=== PATIENT | male | born 1985 | race Caucasian/White ===

== ENCOUNTER 2021-07-22 16:10 | Emergency (ER) | payer OTHER, SELFPAY ==
[2021-07-22 16:17] VITALS: BP 182/112; PULSE 84; RESP 14; TEMP 37.1; O2SAT 97
== END 2021-07-22 16:31 | disposition left against medical advice (07) ==
LOC: EXPBETH 16:14
PROVIDERS: Emergency Provider Nurse Practitioner; PCP Nurse Practitioner Family
DX: Z53.21 Procedure and treatment not carried out due to patient leaving prior to being seen by health care provider (principal)
CPT/HCPCS: 99199

== ENCOUNTER 2021-11-07 21:23 | Emergency (ER) | payer OTHER, SELFPAY ==
--- NOTE | ~2021-11-07 | XR_ITS ---
CORRECTED REPORT order changed 11/15/21 [facility] – [place] EXAM: XR knee LT 3V DATE: 11/07/2021 22:39 HISTORY: LT knee pain, swelling, reddness, oozing . COMPARISON: None available. FINDINGS: Normal mineralization. No fracture or dislocation. No lytic or blastic lesion. Tricompartmental osteoarthritis, severe in the medial compartment. No erosion or periosteal change. Soft tissues within normal limits. IMPRESSION: No acute osseous finding in the left knee. Reviewed, dictated and finalized at location K. MTDD
--- NOTE | ~2021-11-07 | XR_ITS ---
EXAMINATION: XR chest 1V portable Exam Date/Time: 11/07/2021 22:20 CDT HISTORY: fever, LT lower leg swelling and reddness Comparison: None available. RESULT: Lines, tubes, and devices: None. Lungs and pleura: Clear. Cardiomediastinal silhouette: Heart size is enlarged, likely accentuated by technique, otherwise nor mal. Other: No acute osseous or upper abdominal finding. IMPRESSION: No acute cardiopulmonary process. Reviewed, dictated and finalized at location K.
--- NOTE | ~2021-11-07 | XR_ITS ---
CORRECTED REPORT order change 11/15/21 [facility] [place]: XR tibia fibula LT 2V DATE: 11/07/2021 22:40 HISTORY: LT knee/lower limb pain, swelling, reddness, oozing . COMPARISON: None available. FINDINGS: Normal mineralization. No fracture or dislocation. No lytic or blastic lesion. Knee arthritis. Mild degenerative change in the ankle. No erosion or periosteal change. Soft tissues within normal limits. IMPRESSION: No acute osseous finding in the left tibia/fibula. Reviewed, dictated and finalized at location K. MTDD
[2021-11-07 21:30] VITALS: BP 169/106; PULSE 110; RESP 18; TEMP 37.8; O2SAT 92
--- NOTE | 2021-11-07 21:39 | ECG_ITS ---
Measurements Intervals [place] Rate: 109 P: 57 ID: [id number] QRS: 18 QRSD: 104 T: 59 QT: 349 QTc: 471 Interpretive Statements SINUS TACHYCARDIA WITH SHORT ID INTERVAL BASELINE ARTIFACT- I, II, AVR BORDERLINE ECG Electronically Signed On 11-08-2021 7:05:32 CDT by Shola Neely D.O.
[2021-11-07 22:17] LABS: Hematocrit 41.4 % (40.0-54.0); Hemoglobin 13.2 g/dL (14.0-18.0); Mean Corpuscular HGB Conc 31.9 g/dL (32.0-36.0); Mean Corpuscular Hemoglobin 29.9 pg (27.0-31.0); Mean Corpuscular Volume 93.7 fL (78.0-102.0); Mean Platelet Volume 11.3 fl (8.7-11.0); Platelet Count Result 151 K/mm3 (150-420); Red Blood Count 4.42 M/mm3 (4.70-6.10); Red Cell Distribution Width 13.9 % (11.6-14.4)
[2021-11-07 22:22] LABS: White Blood Count 24.2 K/mm3 (4.8-10.8)
[2021-11-07] MEDS: ACETAMINOPHEN 325 MG TABLET 650 MG PO (22:25)
[2021-11-07] MEDS: IBUPROFEN 400 MG TABLET 800 MG PO (22:27)
--- NOTE | 2021-11-07 22:32 | ED.EXTPRO ---
HPI - Extremity Problem General Chief complaint: Extremity Problem,Nontraumatic Stated complaint: redness, leaking, hot LT knee Time Seen by Provider: 11/07/21 21:27 Source: patient, family and RN notes reviewed Mode of arrival: wheelchair Limitations: no limitations History of Present Illness Complaint: extremity pain, extremity swelling and joint swelling Onset (ago): day(s) (2) Pain Consistency: constant Location: left, lower extremity and knee Severity scale (1-10): 8 Quality: aching and constant Radiation: none Relieving factors: nothing Exacerbating factors: weight bearing and walking Associated symptoms: fever Related Data Home Medications Medication Instructions Recorded Confirmed losartan 50 mg tablet 50 tablet PO DIRECTED 11/07/21 11/07/21 Allergies Allergy/AdvReac Type Severity Reaction Status Date / Time No Known Allergies Allergy Verified 11/07/21 21:40 Review of Systems Review of Systems: All systems reviewed & are unremarkable except as noted in HPI and below Constitutional: Constitutional: Reports no additional constitutional complaints Eyes: Eyes: Reports no additional eye complaints ENT: Reports system reviewed and no additional complaints, except as documented Cardiovascular: Cardiovascular: Reports no additional cardiovascular complaints Respiratory: Respiratory: Reports no additional respiratory complaints Gastrointestinal: Gastrointestinal: Reports no additional gastrointestinal complaints Musculoskeletal: Musculoskeletal: Reports no additional musculoskeletal complaints Integumentary/Breasts: Skin/Breast: Reports system reviewed and no additional complaints, except as docu Neurologic: Reports system reviewed and no additional complaints, except as documented Psychiatric: Psychiatric: Reports no additional psychiatric complaints Endocrine: Endocrine: Reports no additional endocrine complaints Hematologic/Lymphatic: Hematologic/Lymphatic: Reports no additional hematologic/lymphatic complaints Allergic/Immunologic: Allergic/Immunologic: Reports no additional allergic/immunologic complaints [facility] Past Medical History Medical History (Updated 11/07/21 @ 23:18 by Omayra Arizmendi MD) Cellulitis of knee, left Family History Family History Mother Patient's mother is in good health Father Patient's father is in good health Sibling Patient's sister is in good health Patient's brother is in good health Other Family history of elevated blood lipids Hypertension Social History Social History Second hand tobacco smoke exposure: Yes Alcohol intake: never Exam Const: General: healthy appearing and no acute distress Nutritional Appearance: well nourished Orientation/consciousness: patient oriented x3 Limitations: no limitations HENMT: Head: normal to inspection Ears: external ears normal, TM's normal bilaterally and EAC's normal General nose exam: Normal external nose present and Normal nares present Face and sinus: normal facial exam and sinuses nontender Mouth: Yes Normal oral and palatal mucosa present and Yes moist mucous membranes Teeth and gingiva: dentition normal Throat: posterior oropharynx normal Eyes: Conjunctivae: conjunctivae normal Pupils: Equal, round and reactive pupils present EOM: EOMs intact bilaterally Neck: Neck: normal visual inspection, no lymphadenopathy and no meningeal signs Chest: Chest palpation & inspection: normal inspection of the chest Resp: Effort & Inspection: normal respiratory effort Auscultation: clear to auscultation bilaterally Cardio: Rate: regular rate Rhythm: regular rhythm GI: GI Palp: Yes Soft to palpation and No Tenderness to palpation present (GI) Auscultation: normal bowel sounds : General: Yes bladder normal to palpation and Yes no CVA tenderness Back/Spine/Pelvis: Back: no CVA
[2021-11-07 22:33] LABS: Lactic Acid Reflex 0.7 mmol/L (0.4-2.0)
[2021-11-07 22:36] LABS: Alanine Aminotransferase 46 U/L (16-63); Albumin Level 2.8 g/dL (3.4-5.0); Alkaline Phosphatase 58 U/L (46-116); Anion Gap 6 mmol/L (8-16); Aspartate Amino Transferase 30 U/L (15-37); Bilirubin,Total 0.7 mg/dL (0.00-1.00); Blood Urea Nitrogen 7 mg/dL (7-18); Calcium 8.5 mg/dL (8.5-10.1); Carbon Dioxide 26 mmol/L (21-32); Chloride 100 mmol/L (98-108); Estimated CRCL calculation 196 ml/min; Estimated Glomerular Filt Rate > 60; Glucose 94 mg/dL (70-99); Osmolality Calculated 272 mOsm/kg (285-295); Potassium 3.7 mmol/L (3.5-5.1); Sodium 132 mmol/L (136-145); Total Protein 7.5 g/dL (6.4-8.2); Troponin I 16.5 ng/L (0.00-60.4)
[2021-11-07 22:39] LABS: Band Neutrophils Percent 0 % (0-6); Basophils Percent Manual 0 % (0-1); Eosinophils Percent Manual 0 % (1-6); Lymphocytes Absolute Manual 0.72 K/mm3 (1.1-4.5); Lymphocytes Percent Manual 3 % (18-44); Monocytes Absolute Manual 0.96 K/mm3 (0.1-0.90); Monocytes Percent Manual 4 % (3-9); Neutrophils Percent Manual 93 % (46-73); Platelet Estimate Adequate (Adequate); Total Cells Counted 100
[2021-11-07] MEDS: MORPHINE SULFATE (*CRX) 2 MG/ML INJ IV PUSH (22:42)
[2021-11-07] MEDS: SODIUM CHLORIDE 0.9% IV 1,000 ML 999 ML IV CONT (22:44)
[2021-11-07] MEDS: ONDANSETRON INJ 4 MG/2 ML VIAL IV PUSH (22:48)
[2021-11-07 22:53] VITALS: BP 152/89; PULSE 103; RESP 18; O2SAT 93
[2021-11-07 23:08] VITALS: BP 163/88; PULSE 100; RESP 18; O2SAT 96
[2021-11-07 23:14] VITALS: TEMP 37.7
[2021-11-07 23:30] VITALS: BP 147/89; PULSE 102; RESP 18; TEMP 37.6; O2SAT 93
== END 2021-11-07 23:45 | disposition home or self-care (01) ==
PROVIDERS: Emergency Provider Emergency Medicine
DX: L03.116 Cellulitis of left lower limb (principal)
CPT/HCPCS: 36415; 71045; 73562; 73590; 80053; 83605; 84484; 85025; 87040; 93005; 96365; 96375; 99284; A9270; J0696; J2270; J2405; J7030

== ENCOUNTER 2021-12-08 23:46 | Emergency (ER) | payer OTHER, SELFPAY ==
[2021-12-08 23:54] VITALS: BP 150/102; PULSE 95; RESP 20; TEMP 36.4; O2SAT 95
--- NOTE | 2021-12-08 23:54 | ED.SKABFB ---
HPI - Skin/Abscess/Foreign Bdy General Chief complaint: Extremity Problem,Nontraumatic Stated complaint: PAIN Time Seen by Provider: 12/08/21 23:54 Source: patient Mode of arrival: ambulatory History of Present Illness HPI narrative: 36-year-old male, smoker with obesity, hypertension on losartan, chronic leg swelling and questionable sleep apnea was here on 11/03/2021 for left knee cellulitis for which he received cephalexin. He presents to the ER with -- left knee cellulitis which is oozing liquid/PAS -- bilateral leg swelling MD complaint: abscess/boil Onset (ago): day(s) Tetanus up to date: yes Location: LLE ( left knee) Severity: moderate Quality: aching Pain Consistency: constant Relieving factors: none Exacerbating factors: none Context: none Associated symptoms: denies other symptoms Treatments prior to arrival: none Related Data Home Medications Medication Instructions Recorded Confirmed losartan 50 mg tablet 50 tablet PO DIRECTED 11/07/21 12/08/21 Allergies Allergy/AdvReac Type Severity Reaction Status Date / Time No Known Allergies Allergy Verified 12/08/21 23:51 Review of Systems Review of Systems: All systems reviewed & are unremarkable except as noted in HPI and below Constitutional: Constitutional: Reports as per HPI and Reports no additional constitutional complaints Eyes: Eyes: Reports as per HPI and Reports no additional eye complaints ENT: Reports system reviewed and no additional complaints, except as documented and Reports as per HPI Cardiovascular: Cardiovascular: Reports as per HPI and Reports no additional cardiovascular complaints Respiratory: Respiratory: Reports as per HPI and Reports no additional respiratory complaints Gastrointestinal: Gastrointestinal: Reports as per HPI and Reports no additional gastrointestinal complaints Genitourinary: Genitourinary: Reports no additional male genitourinary complaints and Reports as per HPI Musculoskeletal: Musculoskeletal: Reports no additional musculoskeletal complaints and Reports as per HPI Integumentary/Breasts: Skin/Breast: Reports system reviewed and no additional complaints, except as docu Comments: cellulitis left knee bilateral leg has chronic venous stasis changes Neurologic: Reports system reviewed and no additional complaints, except as documented and Reports as per HPI Psychiatric: Psychiatric: Reports no additional psychiatric complaints and Reports as per HPI Endocrine: Endocrine: Reports no additional endocrine complaints and Reports as per HPI Hematologic/Lymphatic: Hematologic/Lymphatic: Reports no additional hematologic/lymphatic complaints and Reports as per HPI Allergic/Immunologic: Allergic/Immunologic: Reports no additional allergic/immunologic complaints and Reports as per [facility] Past Medical History Medical History (Updated 12/09/21 @ 00:14 by Garcia Herman MD) Cellulitis of knee, left Family History Family History Mother Patient's mother is in good health Father Patient's father is in good health Sibling Patient's sister is in good health Patient's brother is in good health Other Family history of elevated blood lipids Hypertension Social History Social History (Updated 12/08/21 @ 23:53 by Dave Butler RN) Smoking packs per day: 1 Smoking cigarettes per day: 20.0 Smoking status: Current every day smoker Tobacco type: cigarettes Second hand tobacco smoke exposure: Yes Alcohol intake: never Exam Const: General: healthy appearing and no acute distress Nutritional Appearance: well nourished and obese Orientation/consciousness: patient oriented x3 Limitations: no limitations HENMT: Head: normal to inspection Ears: external ears normal General nose exam: Normal external nose present Face and sinus: normal facial exam Mouth: Yes Normal oral and palatal mucosa present ( crowded oropharynx) Thro
[2021-12-09] MEDS: CLINDAMYCIN HCL 150 MG CAP 300 MG PO (00:28)
[2021-12-09 00:32] VITALS: BP 130/112; PULSE 90; O2SAT 96
== END 2021-12-09 00:33 | disposition home or self-care (01) ==
PROVIDERS: Emergency Provider Internal Medicine Critical Care Medicine
DX: L03.90 Cellulitis, unspecified (principal); M79.89 Other specified soft tissue disorders; I10 Essential (primary) hypertension
CPT/HCPCS: 99283; A9270

== ENCOUNTER 2022-02-06 22:12 | Emergency (ER) | payer OTHER, SELFPAY ==
[2022-02-06] VITALS (8 sets, daily range): BP systolic 149–174; BP diastolic 104–123; PULSE 100; RESP 18; TEMP 36.4; O2SAT 90–96
--- NOTE | 2022-02-06 22:17 | ED.DENTAL ---
HPI - Dental/Oral General Chief complaint: Dental/Oral Stated complaint: jaw infection Source: patient Mode of arrival: ambulatory History of Present Illness HPI Narrative: 36-year-old male with a history of obesity, JODI, hypertension, chronic leg swelling presents to the ER with a 1 day history of -- right upper jaw pain /dental pain -- swelling of the right side of the face no fever or chills MD Complaint: tooth pain Location: Tooth # ( all the molars have missing crowns. The left upper molars have swelling of the surrounding gums with pus discharge) Onset (ago): day(s) ( started 1 day ago) Duration: constant Severity: moderate Relieving factors: nothing Exacerbating factors: nothing Context: history of dental caries Associated symptoms: gum swelling Treatment prior to arrival: none Related Data Allergies Allergy/AdvReac Type Severity Reaction Status Date / Time No Known Allergies Allergy Verified 02/06/22 22:19 Review of Systems Review of Systems: All systems reviewed & are unremarkable except as noted in HPI and below Constitutional: Constitutional: Reports as per HPI and Reports no additional constitutional complaints Eyes: Eyes: Reports as per HPI and Reports no additional eye complaints Comments: swelling of right lower eyelid ENT: Reports system reviewed and no additional complaints, except as documented and Reports as per HPI Comments: extensive dental caries. Right upper molars 1 2 and 3 have missing crowns with swelling of the surrounding gums and purulent discharge coming from around the root. Swelling of the right side of the face extending to the eyes and down to the mandible Cardiovascular: Cardiovascular: Reports as per HPI and Reports no additional cardiovascular complaints Respiratory: Respiratory: Reports as per HPI and Reports no additional respiratory complaints Gastrointestinal: Gastrointestinal: Reports as per HPI and Reports no additional gastrointestinal complaints Genitourinary: Genitourinary: Reports no additional male genitourinary complaints and Reports as per HPI Musculoskeletal: Musculoskeletal: Reports no additional musculoskeletal complaints and Reports as per HPI Integumentary/Breasts: Skin/Breast: Reports system reviewed and no additional complaints, except as docu and Reports as per HPI Comments: chronic venous stasis changes both legs Neurologic: Reports system reviewed and no additional complaints, except as documented and Reports as per HPI Psychiatric: Psychiatric: Reports no additional psychiatric complaints and Reports as per HPI Endocrine: Endocrine: Reports no additional endocrine complaints and Reports as per HPI Hematologic/Lymphatic: Hematologic/Lymphatic: Reports no additional hematologic/lymphatic complaints and Reports as per HPI Allergic/Immunologic: Allergic/Immunologic: Reports no additional allergic/immunologic complaints and Reports as per HPI PMFSH Past Medical History Medical History Cellulitis of knee, left Family History Family History Mother Patient's mother is in good health Father Patient's father is in good health Sibling Patient's sister is in good health Patient's brother is in good health Other Family history of elevated blood lipids Hypertension Social History Social History Smoking packs per day: 1 Smoking cigarettes per day: 20.0 Smoking status: Current every day smoker Tobacco type: cigarettes Second hand tobacco smoke exposure: Yes Alcohol intake: never Exam Const: General: ill appearing Nutritional Appearance: well nourished and obese Orientation/consciousness: patient oriented x3 Limitations: no limitations HENMT: Head: normal to inspection Ears: external ears normal Face/Nose/Sinus: Normal external nose present Face and si
[2022-02-06] MEDS: CLINDAMYCIN 600 MG/D5W 50 ML 600 MG/50 ML PIGGYBACK 100 MG IVPB (22:43)
[2022-02-06] MEDS: levoFLOXacin 500 MG/D5W 100 ML 500 MG/100 ML BAG 100 MG IVPB (22:48)
--- NOTE | 2022-02-06 22:53 | PC.NURSE ---
Pt declines Labs and admission, ERP aware of BP trends
--- NOTE | 2022-02-27 14:51 | PC.NURSE ---
LATE ENTRY This note is being entered to document information to the patient's record. The following information was omitted on [02/06/22], by [Dave Butler]. Levaquin 500mg IV completed at 2340.
== END 2022-02-06 23:49 | disposition home or self-care (01) ==
PROVIDERS: Emergency Provider Internal Medicine Critical Care Medicine; PCP Family Medicine
DX: K04.7 Periapical abscess without sinus (principal); K05.10 Chronic gingivitis, plaque induced; M79.89 Other specified soft tissue disorders
CPT/HCPCS: 96374; 96375; 99285; J1956

== ENCOUNTER 2022-06-19 00:40 | Emergency (ER) | payer OTHER, SELFPAY ==
--- NOTE | ~2022-06-19 | CT_ITS ---
EXAMINATION: CT facial bones wo con DATE: 06/19/2022 01:44 INDICATION: Right facial swelling. Right upper tooth pain. TECHNIQUE: Computed tomography (CT) of the facial bones and maxillofacial region was performed withou t intravenous contrast. Automated exposure control and iterative reconstruction technique were employ ed. The dose-length product was 466.99 mGy-cm. COMPARISON: None. FINDINGS: There is right cheek and right periorbital soft tissue swelling. The orbits are normal. The re is leftward deviation of the nasal septum. There is mucosal thickening in the paranasal sinuses. T he mastoid air cells are normal. There is extensive dental disease. Teeth 1-4 are broken with periapi simone lucencies and breech of the buccal cortex of the alveolar process at tooth 3 with adjacent 10 mm phlegmon versus abscess. There are carious lesions of teeth 5, 7, 10, 11, and 12. Teeth 13-15 are bro tess with periapical lucencies. The 2 remaining left mandibular molars are broken with periapical luce ncies. Tooth 20 is broken with periapical lucencies. There are carious lesions of teeth 21, 28, and 2 9. The residual right mandibular molar is broken with periapical lucencies. IMPRESSION: 1. Extensive dental disease with phlegmon versus abscess adjacent to tooth #3. Reviewed, dictated and finalized at location A. DATA ARCHITECT
[2022-06-19 00:44] VITALS: BP 160/114; PULSE 98; RESP 18; TEMP 36.4; O2SAT 91
--- NOTE | 2022-06-19 00:46 | ED.DENTAL ---
HPI - Dental/Oral General Chief complaint: Unspecified Stated complaint: Allergic Reaction History of Present Illness HPI Narrative: Pt presents with pain in upper right molars and swelling to face since yesteerday that has progressed to the point where his right eye is nearly swollen shut. Pt had similar episode in past and was put on antibiotics and sent home and it resolved. Pt denies fever or chills. Related Data Allergies Allergy/AdvReac Type Severity Reaction Status Date / Time No Known Allergies Allergy Verified 02/06/22 22:19 Review of Systems Review of Systems: All systems reviewed & are unremarkable except as noted in HPI and below PMFSH Past Medical History Medical History Cellulitis of knee, left Family History Family History Mother Patient's mother is in good health Father Patient's father is in good health Sibling Patient's sister is in good health Patient's brother is in good health Other Family history of elevated blood lipids Hypertension Social History Social History Smoking packs per day: 1 Smoking cigarettes per day: 20.0 Smoking status: Current every day smoker Tobacco type: cigarettes Second hand tobacco smoke exposure: Yes Alcohol intake: never Exam Const: General: healthy appearing and no acute distress Nutritional Appearance: obese Orientation/consciousness: patient oriented x3 Limitations: no limitations HENMT: Face and sinus: sinus tenderness (prominent facial swelling and firmness over right cheek with swelling aroun) Teeth and gingiva: abnormal tooth and associated gingiva (dental carries without definite abscess) Neck: Neck: normal visual inspection and no lymphadenopathy Resp: Effort & Inspection: normal respiratory effort Cardio: Rate: regular rate Rhythm: regular rhythm GI: GI Palp: Yes Soft to palpation Skin: General skin exam: normal color Neuro: General: patient oriented x3, moves all extremities and no focal motor deficits Cranial nerves: Yes Nystagmus not present Speech: normal speech Extrem: General: normal to inspection and no clubbing, cyanosis or edema Psych: Mental Status: mental status grossly normal Affect: normal affect Attitude: cooperative Course Vital Signs Vital signs: Vital Signs Temperature 97.6 F 06/19/22 00:44 Pulse Rate 98 06/19/22 00:44 Respiratory Rate 18 06/19/22 00:44 Blood Pressure 160/114 H 06/19/22 00:44 Pulse Oximetry 91 06/19/22 00:44 Oxygen Delivery Room Air 06/19/22 00:44 Temperature 97.6 F 06/19/22 00:44 Pulse Rate 98 06/19/22 00:44 Respiratory Rate 18 06/19/22 00:44 Blood Pressure 160/114 H 06/19/22 00:44 Pulse Oximetry 91 06/19/22 00:44 Oxygen Delivery Room Air 06/19/22 00:44 MDM - Dental/Oral MDM Narrative Medical decision making narrative: cbc, cmp, lactate nl, elevated crp, ct shows numerous periapical abscesses see report. will send home on oral augmentin after vanc in ER and pt needs to see dentist or oral surgeon in follow up Lab Data 06/19/22 01:07 06/19/22 01:07 Labs: Lab Results 06/19/22 06/19/22 06/19/22 Range/Units 01:07 01:07 01:07 WBC 10.8 (4.8-10.8) K/mm3 RBC 4.49 L (4.70-6.10) M/mm3 Hgb 13.5 L (14.0-18.0) g/dL Hct 41.8 (40.0-54.0) % MCV 93.1 (78.0-102.0) fL MCH 30.1 (27.0-31.0) pg MCHC 32.3 (32.0-36.0) g/dL RDW 13.4 (11.6-14.4) % Plt Count 189 (150-420) K/mm3 MPV 10.7 (8.7-11.0) fl Immature Gran % (Auto) 0.3 H (0.0-0.0) % Neut % (Auto) 71.4 H (50.0-70.0) % Lymph % (Auto) 19.6 (18.0-42.0) % [place] % (Auto) 7.1 (2.0-11.0) % Eos % (Auto) 1.0 (1.0-6.0) % Baso % (Auto) 0.6 (0.0-1.0) % Lymph # (Auto) 2.13 (1.10-4.50) K/mm3 [place] # (Auto) 0.77 (0.10-
[2022-06-19 01:10] LABS: Basophils Absolute Auto 0.06 K/mm3 (0.00-0.10); Basophils Percent Auto 0.6 % (0.0-1.0); Eosinophils Absolute Auto 0.11 K/mm3 (0.02-0.50); Hematocrit 41.8 % (40.0-54.0); Hemoglobin 13.5 g/dL (14.0-18.0); Immature Granulocyte Absolute 0.03 K/mm3 (0.00-0.00); Immature Granulocyte Percent A 0.3 % (0.0-0.0); Lymphocytes Absolute Auto 2.13 K/mm3 (1.10-4.50); Lymphocytes Percent Auto 19.6 % (18.0-42.0); Mean Corpuscular HGB Conc 32.3 g/dL (32.0-36.0); Mean Corpuscular Hemoglobin 30.1 pg (27.0-31.0); Mean Corpuscular Volume 93.1 fL (78.0-102.0); Mean Platelet Volume 10.7 fl (8.7-11.0); Monocytes Absolute Auto 0.77 K/mm3 (0.10-0.90); Monocytes Percent Auto 7.1 % (2.0-11.0); Neutrophils Absolute Auto 7.7 K/mm3 (1.7-7.2); Neutrophils Percent Auto 71.4 % (50.0-70.0); Platelet Count Result 189 K/mm3 (150-420); Red Blood Count 4.49 M/mm3 (4.70-6.10); Red Cell Distribution Width 13.4 % (11.6-14.4); White Blood Count 10.8 K/mm3 (4.8-10.8)
[2022-06-19 01:25] LABS: INR 1.1; Partial Thromboplastin Time 27.1 SEC (23.90-30.70); Prothrombin Time 11.5 Seconds (9.50-12.10)
[2022-06-19 01:40] LABS: Alanine Aminotransferase 34 U/L (16-63); Albumin Level 3.1 g/dL (3.4-5.0); Alkaline Phosphatase 50 U/L (46-116); Anion Gap 3 mmol/L (8-16); Aspartate Amino Transferase 29 U/L (15-37); Bilirubin,Total 0.5 mg/dL (0.00-1.00); Blood Urea Nitrogen 11 mg/dL (7-18); Calcium 8.4 mg/dL (8.5-10.1); Carbon Dioxide 33 mmol/L (21-32); Chloride 100 mmol/L (98-108); Estimated CRCL calculation 188 ml/min; Estimated Glomerular Filt Rate > 60; Glucose 126 mg/dL (70-99); Osmolality Calculated 283 mOsm/kg (285-295); Potassium 3.6 mmol/L (3.5-5.1); Sodium 136 mmol/L (136-145); Total Protein 7.8 g/dL (6.4-8.2)
[2022-06-19 02:35] VITALS: BP 155/86; PULSE 91; RESP 20; TEMP 36.9; O2SAT 99
[2022-06-19] MEDS: HYDROcodone/acetaminophen (*CRX) 5-325 MG TABLET 1 TAB PO (02:45)
--- NOTE | 2022-06-25 13:07 | PC.NURSE ---
FINAL BLOOD CULTURE X2: NO GROWTH AFTER 5 DAYS. NO ACTION NEEDED
== END 2022-06-19 02:45 | disposition home or self-care (01) ==
PROVIDERS: Emergency Provider Emergency Medicine; PCP Family Medicine
DX: K04.7 Periapical abscess without sinus (principal); F17.210 Nicotine dependence, cigarettes, uncomplicated
CPT/HCPCS: 36415; 70486; 80053; 83605; 85025; 85610; 85730; 86140; 87040; 96365; 96366; 99284; A9270; J3370

== ENCOUNTER 2022-09-05 17:57 | Emergency (ER) | payer OTHER, SELFPAY ==
[2022-09-05] VITALS (8 sets, daily range): BP systolic 150–154; BP diastolic 90–108; PULSE 86–90; RESP 16–20; TEMP 37–37.2; O2SAT 90–94
--- NOTE | ~2022-09-05 | XR_ITS ---
EXAMINATION: XR chest 1V portable Exam Date/Time: 09/05/2022 18:40 CDT HISTORY: Dyspnea since last night. No lung or cardiac hx. Comparison: 11/07/2021. RESULT: Lines, tubes, and devices: None. Lungs and pleura: Exam limited by quantum mottle, habitus, and linear artifacts. Diffuse reticular o pacities, indistinct vessels and cuffing. No focal consolidation. Cardiomediastinal silhouette: Stable. Other: No acute osseous or upper abdominal finding. IMPRESSION: Mild interstitial edema versus technical artifact. Reviewed, dictated and finalized at location K.
[2022-09-05] MEDS: IPRATROPIUM 0.5 MG/ALBUTEROL SULFATE 2.5 MG AMPUL.NEB 3 ML INHALATION (18:29)
[2022-09-05 18:43] LABS: Basophils Absolute Auto 0.05 K/mm3 (0.00-0.10); Basophils Percent Auto 0.5 % (0.0-1.0); Eosinophils Absolute Auto 0.17 K/mm3 (0.02-0.50); Eosinophils Percent Auto 1.8 % (1.0-6.0); Hematocrit 40.5 % (40.0-54.0); Immature Granulocyte Absolute 0.04 K/mm3 (0.00-0.00); Immature Granulocyte Percent A 0.4 % (0.0-0.0); Lymphocytes Percent Auto 19.7 % (18.0-42.0); Mean Corpuscular HGB Conc 32.1 g/dL (32.0-36.0); Mean Corpuscular Hemoglobin 30.2 pg (27.0-31.0); Mean Platelet Volume 9.9 fl (8.7-11.0); Monocytes Absolute Auto 0.52 K/mm3 (0.10-0.90); Monocytes Percent Auto 5.4 % (2.0-11.0); Neutrophils Percent Auto 72.2 % (50.0-70.0); Platelet Count Result 245 K/mm3 (150-420); Red Blood Count 4.31 M/mm3 (4.70-6.10); Red Cell Distribution Width 13.2 % (11.6-14.4); White Blood Count 9.7 K/mm3 (4.8-10.8)
[2022-09-05 19:05] LABS: Alanine Aminotransferase 40 U/L (16-63); Albumin Level 2.9 g/dL (3.4-5.0); Alkaline Phosphatase 51 U/L (46-116); Anion Gap 4 mmol/L (8-16); Aspartate Amino Transferase 39 U/L (15-37); Bilirubin,Total 0.3 mg/dL (0.00-1.00); Blood Urea Nitrogen 12 mg/dL (7-18); Calcium 8.7 mg/dL (8.5-10.1); Carbon Dioxide 36 mmol/L (21-32); Chloride 102 mmol/L (98-108); Estimated Glomerular Filt Rate > 60; Glucose 131 mg/dL (70-99); NT Pro B Type Natriuretic Pept 202 pg/mL (0-125); Osmolality Calculated 295 mOsm/kg (285-295); Potassium 3.8 mmol/L (3.5-5.1); Sodium 142 mmol/L (136-145); Total Protein 8.1 g/dL (6.4-8.2)
[2022-09-05] MEDS: methylPREDNISolone ACETATE 40 MG/ML VIAL 80 MG IM (19:08)
--- NOTE | 2022-09-05 19:23 | ED.SOB ---
HPI - SOB/Dyspnea General Chief Complaint: Shortness of Breath/Dyspnea Stated Complaint: sob Time Seen by Provider: 09/05/22 18:01 Source: patient and family Mode of arrival: ambulatory Limitations: no limitations History of Present Illness HPI Narrative: this is a 37-year-old male that presents with cough and congestion with shortness of breath that started earlier today, cough is productive of yellow sputum with no chest pain no abdominal pain does have chronic venous stasis edema in his lower extremities with no significant past medical history, the patient is a smoker, no fever chills no nausea vomiting. MD elicited complaint: shortness of breath and cough Onset (ago): hour(s) Timing: constant Severity: moderate Related Data Allergies Allergy/AdvReac Type Severity Reaction Status Date / Time No Known Allergies Allergy Verified 09/05/22 18:07 Review of Systems Review of Systems: All systems reviewed & are unremarkable except as noted in HPI and below PMFSH Past Medical History Medical History Cellulitis of knee, left Family History Family History Mother Patient's mother is in good health Father Patient's father is in good health Sibling Patient's sister is in good health Patient's brother is in good health Other Family history of elevated blood lipids Hypertension Social History Social History Smoking packs per day: 1 Smoking cigarettes per day: 20.0 Smoking status: Current every day smoker Tobacco type: cigarettes Second hand tobacco smoke exposure: Yes Alcohol intake: never Exam Const: General: healthy appearing and no acute distress Nutritional Appearance: well nourished Orientation/consciousness: patient oriented x3 Limitations: no limitations HENMT: Head: normal to inspection Face and sinus: normal facial exam Mouth: Yes Normal oral and palatal mucosa present Eyes: Conjunctivae: conjunctivae normal Pupils: Equal, round and reactive pupils present EOM: EOMs intact bilaterally Direct Ophthalmoscopy: no photophobia Neck: Neck: normal visual inspection Chest: Chest palpation & inspection: normal inspection of the chest Resp: Effort & Inspection: normal respiratory effort Auscultation: rhonchi and wheezes Cardio: Rate: regular rate Rhythm: regular rhythm GI: GI Palp: Yes Soft to palpation Auscultation: normal bowel sounds : General: Yes bladder normal to palpation Urinary Catheter: Urinary Catheter: patent and draining Skin: General skin exam: normal color Rashes: no rashes Neuro: General: patient oriented x3 and moves all extremities Cranial nerves: Yes Nystagmus not present Extrem: General: normal to inspection Psych: Mental Status: mental status grossly normal Affect: normal affect Course Course Emergency Course: Labs and x-ray reviewed with patient and family patient did receive a DuoNeb and a dose of Depo-Medrol symptoms have improved x-ray reviewed and shows no opacities but is consistent with bronchitis. Vital Signs Vital signs: Vital Signs Temperature 37.0 C 09/05/22 18:04 Pulse Rate 89 09/05/22 18:04 Respiratory Rate 16 09/05/22 18:04 Blood Pressure 150/108 H 09/05/22 18:04 Pulse Oximetry 91 09/05/22 18:04 Oxygen Delivery Room Air 09/05/22 18:04 Temperature 37.0 C 09/05/22 18:04 Pulse Rate 90 09/05/22 18:50 Respiratory Rate 18 09/05/22 18:50 Blood Pressure 150/108 H 09/05/22 18:04 Pulse Oximetry 94 09/05/22 18:50 Oxygen Delivery Room Air 09/05/22 18:12 Oxygen Flow Rate 1 09/05/22 18:50 MDM - SOB/Dyspnea Lab Data 09/05/22 18:40 09/05/22 18:40 Labs: Lab Results 09/05/22 09/05/22 Range/Units 18:24 18:40 WBC 9.7 (4.8-10.8) K/mm3 RBC 4.31 L (4.70-6.10) M/mm3 Hgb 13.0 L (14
[2022-09-05 19:53] LABS: Influenza A QL RT-PCR Negative (Negative); Influenza B QL RT-PCR Negative (Negative); SARS-CoV-2 RNA PCR Negative (Negative)
[2022-09-05 19:54] LABS: RSV RNA, RT-PCR Negative (Negative)
[2022-09-05] MEDS: AMOXICILLIN/CLAVULANATE K 875-125 MG TAB 1 TABLET PO (20:06)
== END 2022-09-05 20:15 | disposition home or self-care (01) ==
PROVIDERS: Emergency Provider Emergency Medicine; PCP Family Medicine
DX: J06.9 Acute upper respiratory infection, unspecified (principal); F17.210 Nicotine dependence, cigarettes, uncomplicated; Z20.822 Contact with and (suspected) exposure to COVID-19
CPT/HCPCS: 36415; 71045; 80053; 83880; 85025; 87637; 94640; 96372; 99283; A9270; J1030

== ENCOUNTER 2022-11-08 00:46 | Emergency (ER) | payer OTHER, SELFPAY ==
--- NOTE | 2022-11-08 00:53 | ED.WOUNDLAC ---
HPI - Wound/Laceration General Chief Complaint: Wound/Laceration Stated Complaint: wound on left lower leg Time Seen by Provider: 11/08/22 00:52 Source: patient Mode of arrival: ambulatory Limitations: no limitations History of Present Illness HPI narrative: this is a 37-year-old morbidly obese gentleman that presents with elevated blood pressure and edema and weeping of his bilateral lower extremities with erythema which there is no warmth or tenderness does have some clear drainage and weeping with no shortness of breath no chest pain no abdominal pain no fever chills. Patient states that he has no history of diabetes, has a history of hypertension but has not been taking his blood pressure medication. Onset (ago): week(s) Related Data Allergies Allergy/AdvReac Type Severity Reaction Status Date / Time No Known Allergies Allergy Verified 09/05/22 18:07 Review of Systems Review of Systems: All systems reviewed & are unremarkable except as noted in HPI and below PMFSH Past Medical History Medical History Cellulitis of knee, left Family History Family History Mother Patient's mother is in good health Father Patient's father is in good health Sibling Patient's sister is in good health Patient's brother is in good health Other Family history of elevated blood lipids Hypertension Social History Social History Smoking packs per day: 1 Smoking cigarettes per day: 20.0 Smoking status: Current every day smoker Tobacco type: cigarettes Second hand tobacco smoke exposure: Yes Alcohol intake: never Exam Const: General: healthy appearing Nutritional Appearance: well nourished Orientation/consciousness: patient oriented x3 Limitations: no limitations HENMT: Head: normal to inspection Eyes: Conjunctivae: conjunctivae normal Neck: Neck: normal visual inspection and no lymphadenopathy Chest: Chest palpation & inspection: normal inspection of the chest Resp: Effort & Inspection: normal respiratory effort Auscultation: clear to auscultation bilaterally Cardio: Rate: regular rate Rhythm: regular rhythm GI: GI Palp: Yes Soft to palpation Skin: Wounds: wounds noted Other: Lower extremity with erythema and weeping through this skin consistent with chronic venous stasis secondary to peripheral edema Neuro: General: patient oriented x3 Cranial nerves: Yes Nystagmus not present Extrem: General: normal to inspection Psych: Mental Status: mental status grossly normal Affect: normal affect Course Course Emergency Course: patient's blood pressure is elevated and having cracks in the skin with weeping is low bilateral lower extremities will start an antibiotic 1g ceftriaxone and sent to the patient's pharmacy Lasix along with blood pressure Medicationand antibiotic. Critical Care Time Critical Care Time Critical Care Time: No Discharge Plan Discharge Clinical Impression: Essential hypertension, Cellulitis, Edema, peripheral Patient Disposition: Home, Self-Care Condition: Stable Instructions: Antibiotic Form, Cellulitis (ED), Leg Edema (ED), Hypertension (ED) Additional Instructions: advised to take medicine as prescribed and follow with primary for further evaluation treatment. Prescriptions: New losartan 50 mg tablet 50 mg PO DAILY Qty: 20 0RF amoxicillin-pot clavulanate [Augmentin] 500-125 mg tablet 1 tablet PO TID 10 Days Qty: 30 0RF furosemide [Lasix] 40 mg tablet 40 mg PO DAILY Qty: 7 0RF No Action amoxicillin-pot clavulanate [Augmentin] 500-125 mg tablet 1 tablet PO TID Qty: 20 0RF prednisone 20 mg tablet 20 mg PO DAILY Qty: 5 0RF ProAir RespiClick 90 mcg/actuation aerosol powdr breath activated 2 inh inhalation QID PRN (Reason: shortness of breath) Qty:
[2022-11-08 00:55] VITALS: BP 169/106; PULSE 100; RESP 20; TEMP 36.9; O2SAT 92
[2022-11-08] MEDS: cefTRIAXone 1 GM, LIDOCAINE HCL 1% LOCAL INJ 2.1 ML IM (01:13)
[2022-11-08 01:22] VITALS: BP 165/104; PULSE 89; RESP 20; TEMP 36.6; O2SAT 91
== END 2022-11-08 01:26 | disposition home or self-care (01) ==
LOC: CHSED 01:10
PROVIDERS: Emergency Provider Emergency Medicine; PCP Family Medicine
DX: I10 Essential (primary) hypertension (principal); R60.0 Localized edema; F17.210 Nicotine dependence, cigarettes, uncomplicated
CPT/HCPCS: 96372; 99283; J0696

== ENCOUNTER 2023-01-13 00:36 | Emergency (ER) | payer OTHER, SELFPAY ==
[2023-01-13 00:42] VITALS: BP 180/110; PULSE 90; RESP 20; TEMP 36.2; O2SAT 95
--- NOTE | 2023-01-13 00:57 | ED.GENADULT ---
HPI - General Adult General Chief complaint: Dental/Oral Stated complaint: tooth pain Time Seen by Provider: 01/13/23 00:51 Source: patient and family Mode of arrival: ambulatory Limitations: no limitations History of Present Illness HPI narrative: Complaint is toothache last 5 days with swelling of his left side of his jaw and it is worse today. Rates his pain as a 9/10. He has been on clindamycin for the last 3 days that he have some left over from an old prescription from about a month ago. Otherwise denies any fever cough shortness of breath difficulty breathing rash or itching lumps or bumps. He has chronic swelling it and venous insufficiency of his lower extremities is supposed to be wearing compression stockings which she has not done for several months. Denies any dizziness or lightheadedness problems eating or drinking voiding or stooling bleeding or bruising. Denies any problems walking talking seeing or hearing or any other complaints. Related Data Allergies Allergy/AdvReac Type Severity Reaction Status Date / Time No Known Allergies Allergy Verified 09/05/22 18:07 Review of Systems Review of Systems: All systems reviewed & are unremarkable except as noted in HPI and below PMFSH Past Medical History Medical History Cellulitis of knee, left Family History Family History Mother Patient's mother is in good health Father Patient's father is in good health Sibling Patient's sister is in good health Patient's brother is in good health Other Family history of elevated blood lipids Hypertension Social History Social History Smoking packs per day: 1 Smoking cigarettes per day: 20.0 Smoking status: Current every day smoker Tobacco type: cigarettes Second hand tobacco smoke exposure: Yes Alcohol intake: never Exam Narrative: Morbidly obese white male appears no apparent distress he has mild swelling of his left jaw with multiple missing teeth the rest of his teeth are all rotten down to the gums with broken teeth. Neck supple no lymphadenopathy lungs are clear heart is regular rate rhythm without murmurs gallops or rubs. Abdomen is morbidly obese soft nontender. Extremities Conrado swelling of his lower extremities with venous stasis color changes nontender. Neurologically is alert and oriented x4 motor and sensory grossly intact. Course Vital Signs Vital signs: Vital Signs Temperature 36.2 C L 01/13/23 00:42 Pulse Rate 90 01/13/23 00:42 Respiratory Rate 20 01/13/23 00:42 Blood Pressure 180/110 H 01/13/23 00:42 Pulse Oximetry 95 01/13/23 00:42 Oxygen Delivery Room Air 01/13/23 00:42 Temperature 36.2 C L 01/13/23 00:42 Pulse Rate 90 01/13/23 00:42 Respiratory Rate 20 01/13/23 00:42 Blood Pressure 180/110 H 01/13/23 00:42 Pulse Oximetry 95 01/13/23 00:42 Oxygen Delivery Room Air 01/13/23 00:42 Medical Decision Making MDM Narrative Medical decision making narrative: Patient Patient is placed in room 2 with his history and physical were performed. He was given Rocephin 1 g IM and Toradol 60 mg IM. Independent Historian: ? Differential Dx includes but not limited to: dental abscess pharyngitis Medications were Reviewed:? home meds reviewed? Medications treatments given: as above Independently Interpreted by me:? External Source Review:?? Medical conditions/social Situation Impacting Patients Care:?? Shared decision Making:? evaluation was discussed with patient and his all questions were asked and answered and they agreed on a plan. Discussed with ? Clinical impression:? ? Dental abscess ? Patient disposition: ? discharge home ? Condition at discharge: stable Vital Signs Vital Signs: Vital Signs Temperature 36.2 C L
[2023-01-13] MEDS: KETOROLAC (*BKC) 60 MG/2 ML VIAL IM (01:02)
[2023-01-13] MEDS: cefTRIAXone 1 GM, LIDOCAINE HCL 1% LOCAL INJ 2.1 ML IM (01:03)
[2023-01-13 01:18] VITALS: BP 184/120; PULSE 80; RESP 20; O2SAT 96
[2023-01-13] MEDS: cloNIDine HCL 0.2 MG TABLET PO (01:20)
[2023-01-13 01:43] VITALS: BP 167/100; PULSE 91; RESP 18; TEMP 36.6; O2SAT 98
== END 2023-01-13 01:49 | disposition home or self-care (01) ==
PROVIDERS: Emergency Provider Emergency Medicine; PCP Family Medicine
DX: K04.7 Periapical abscess without sinus (principal); F17.210 Nicotine dependence, cigarettes, uncomplicated
CPT/HCPCS: 96372; 99284; A9270; J0696; J1885

== ENCOUNTER 2023-05-19 13:04 | Emergency (ER) | payer OTHER, SELFPAY ==
[2023-05-19] VITALS (10 sets, daily range): BP systolic 165–211; BP diastolic 107–130; PULSE 67–97; RESP 14–27; TEMP 36.6; O2SAT 96–100
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
--- NOTE | 2023-05-19 13:24 | PC.NURSE ---
EMS reports pt ambulatory on scene
--- NOTE | 2023-05-19 14:22 | ECG_ITS ---
Measurements Intervals [place] Rate: 69 P: 29 ND: 137 QRS: 29 QRSD: 105 T: 70 QT: 424 QTc: 456 Interpretive Statements SINUS RHYTHM BASELINE ARTIFACT- I, III, AVR, AVL, AVF NORMAL ECG COMPARED TO ECG 11/07/2021 21:57:33 SINUS RHYTHM NOW PRESENT Electronically Signed On 05-19-2023 14:44:01 [employer] by Shola Neely D.O.
--- NOTE | 2023-05-19 14:44 | PC.NURSE ---
pt to ED without c-collar, c-coller applied once in room and currently intact
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
[2023-05-19 15:23] LABS: Basophils Percent Auto 0.4 % (0.2-1.2); Eosinophils Absolute Auto 0.1 K/mm3 (0-0.3); Eosinophils Percent Auto 0.8 % (0-4.4); Hematocrit 44.4 % (42.0-52.0); Hemoglobin 13.7 g/dL (14.0-18.0); Immature Granulocyte Absolute 0.08 K/mm3 (0.00-0.031); Immature Granulocyte Percent A 0.8 % (0-0.5); Lymphocytes Absolute Auto 1.12 K/mm3 (0.9-3.2); Lymphocytes Percent Auto 11.3 % (18.3-44.2); Mean Corpuscular HGB Conc 30.9 g/dl (32-36); Mean Corpuscular Volume 93.9 fl (80-100); Mean Platelet Volume 10.7 fl (7.4-10.4); Monocytes Absolute Auto 0.5 K/mm3 (0.1-0.6); Monocytes Percent Auto 4.7 % (2.6-8.5); Neutrophils Absolute Auto 8.1 K/mm3 (1.3-6.7); Platelet Count Result 185 k/mm3 (150-375); Red Blood Count 4.73 M/mm3 (4.6-6.20); Red Cell Distribution Width 13.2 % (11.5-14.5); White Blood Count 9.9 K/mm3 (4.5-10.0)
[2023-05-19 15:35] LABS: Prothrombin Time 13.9 Seconds (11.1-14.7)
[2023-05-19 15:37] LABS: Alanine Aminotransferase 37 U/L (6-50); Albumin Level 4.1 g/dL (3.5-5.1); Alkaline Phosphatase 60 U/L (38-126); Anion Gap 2 mmol/L (8-16); Aspartate Amino Transferase 50 U/L (17-59); Bilirubin,Total 0.8 mg/dL (0.2-1.3); Blood Urea Nitrogen 17 mg/dL (9-20); Calcium 9.1 mg/dL (8.4-10.2); Carbon Dioxide 36 mmol/L (22-30); Chloride 98 mmol/L (98-107); Estimated CRCL calculation 230 ml/min; Estimated Glomerular Filt Rate > 60; Glucose 100 mg/dL (65-110); Lipase 43 U/L (23-300); Partial Thromboplastin Time 28.2 SECONDS (22.3-36.8); Potassium 4.1 mmol/L (3.4-5.0); Sodium 136 mmol/L (137-145)
[2023-05-19 16:27] LABS: Appearance Urine Clear (Clear); Bacteria Urine None Seen /hpf; Bilirubin Urine Negative (Negative); Blood Urine Negative (Negative); Color Urine Yellow (Yellow); Glucose Urine UA Negative (Negative); Ketones Urine Negative (Negative); Leukocyte Esterase Ur Negative LEU/UL (Negative); Nitrate Urine Negative (Negative); Non Pathogenic Casts 0-2; Protein Urine Trace mg/dL (Negative); RBC Urine 0-2 /hpf (0-2); Specific Grav Ur 1.021 (1.001-1.035); Squamous Epithelial Cell Urine None seen /hpf (Few); Urobilinogen Urine 0.2 mg/dL (<2.0); WBC Urine 0-5 /hpf; pH Urine 7.5 (5.0-9.0)
[2023-05-19 16:37] LABS: Add Urine Microscopic? YES
== END 2023-05-19 17:24 | disposition home or self-care (01) ==
PROVIDERS: Emergency Provider Emergency Medicine; PCP Family Medicine
DX: S22.43XA Multiple fractures of ribs, bilateral, initial encounter for closed fracture (principal); F17.210 Nicotine dependence, cigarettes, uncomplicated; V49.40XA Driver injured in collision with unspecified motor vehicles in traffic accident, initial encounter
CPT/HCPCS: 36415; 70450; 70486; 71275; 72125; 74174; 80053; 81001; 83605; 83690; 85025; 85610; 85730; 93005; 99284; L0140; Q9967

== ENCOUNTER 2023-05-24 01:09 | Emergency (ER) | payer OTHER, SELFPAY ==
[2023-05-24 01:09] VITALS: BP 219/132; PULSE 83; RESP 20; TEMP 37.1; O2SAT 94
--- NOTE | 2023-05-24 01:16 | ECG_ITS ---
Measurements Intervals [place] Rate: 76 P: 39 TX: 141 QRS: 16 QRSD: 102 T: 48 QT: 410 QTc: 463 Interpretive Statements SINUS RHYTHM WITH SINUS ARRHYTHMIA VOLTAGE CRITERIA FOR LVH BORDERLINE ST-T WAVE ABNORMALITY- INF/LAT LEADS BASELINE ARTIFACT- I, II, III, AVL, AVF, V1-V2, V4-V6 BORDERLINE ECG COMPARED TO ECG 05/19/2023 14:27:28 [address] NOW PRESENT ST-T WAVE ABNORMALITY NOW PRESENT Electronically Signed On 05-24-2023 8:33:04 [employer] by Shola Neely D.O.
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
[2023-05-24] MEDS: ONDANSETRON HCL ODT 4 MG TABLET PO (02:01)
[2023-05-24] MEDS: HYDROmorphone HCL INJ (*CRX) 2 MG/ML VIAL 1 MG IM (02:02)
[2023-05-24 02:07] LABS: Basophils Absolute Auto 0.03 K/mm3 (0.00-0.10); Basophils Percent Auto 0.3 % (0.0-1.0); Eosinophils Absolute Auto 0.18 K/mm3 (0.02-0.50); Eosinophils Percent Auto 1.8 % (1.0-6.0); Hematocrit 43.5 % (40.0-54.0); Hemoglobin 13.5 g/dL (14.0-18.0); Immature Granulocyte Absolute 0.03 K/mm3 (0.00-0.00); Immature Granulocyte Percent A 0.3 % (0.0-0.0); Lymphocytes Absolute Auto 1.56 K/mm3 (1.10-4.50); Lymphocytes Percent Auto 15.6 % (18.0-42.0); Mean Corpuscular Hemoglobin 28.8 pg (27.0-31.0); Mean Corpuscular Volume 92.9 fL (78.0-102.0); Mean Platelet Volume 10.9 fl (8.7-11.0); Monocytes Absolute Auto 0.65 K/mm3 (0.10-0.90); Monocytes Percent Auto 6.5 % (2.0-11.0); Neutrophils Absolute Auto 7.5 K/mm3 (1.7-7.2); Neutrophils Percent Auto 75.5 % (50.0-70.0); Platelet Count Result 178 K/mm3 (150-420); Red Blood Count 4.68 M/mm3 (4.70-6.10); Red Cell Distribution Width 13.3 % (11.6-14.4)
--- NOTE | 2023-05-24 02:08 | PC.NURSE ---
Multiple attempts made at IV insert s success, ERP Dr Julian notified, meds changed to IM injection. Explained need to get IV access for CT c contrast. Pt given water to drink because he states he hasn't had much water to drink in past 2-3 days due to pain and not feeling well.
[2023-05-24 02:24] LABS: Alanine Aminotransferase 33 U/L (16-63); Albumin Level 3.4 g/dL (3.4-5.0); Alkaline Phosphatase 59 U/L (46-116); Anion Gap 4 mmol/L (8-16); Aspartate Amino Transferase 24 U/L (15-37); Bilirubin,Total 0.7 mg/dL (0.00-1.00); Blood Urea Nitrogen 13 mg/dL (7-18); Calcium 9.1 mg/dL (8.5-10.1); Carbon Dioxide 33 mmol/L (21-32); Chloride 98 mmol/L (98-108); Estimated CRCL calculation 198 ml/min; Estimated Glomerular Filt Rate > 60; Glucose 103 mg/dL (70-99); Lipase 15 U/L (16-77); Osmolality Calculated 280 mOsm/kg (285-295); Potassium 4.1 mmol/L (3.5-5.1); Sodium 135 mmol/L (136-145); Total Protein 8.4 g/dL (6.4-8.2)
--- NOTE | 2023-05-24 02:36 | PC.NURSE ---
Pt not wanting anymore IV sticks and wants to sign AMA. Paperwork signed and risks/benefits explained.
[2023-05-24 02:37] VITALS: BP 200/110; PULSE 95; RESP 24; O2SAT 95
== END 2023-05-24 02:41 | disposition left against medical advice (07) ==
LOC: CHSED 01:23
PROVIDERS: Emergency Provider Emergency Medicine; PCP Family Medicine
DX: R07.9 Chest pain, unspecified (principal); S22.43XD Multiple fractures of ribs, bilateral, subsequent encounter for fracture with routine healing; F17.210 Nicotine dependence, cigarettes, uncomplicated; V44.5XXD Car driver injured in collision with heavy transport vehicle or bus in traffic accident, subsequent encounter
CPT/HCPCS: 36415; 80053; 83690; 85025; 93005; 96372; 99283; A9270; J1170

== ENCOUNTER 2023-08-11 00:57 | Emergency (ER) | payer SELFPAY ==
[2023-08-11 01:00] VITALS: BP 183/125; PULSE 102; RESP 18; TEMP 36.7; O2SAT 95
--- NOTE | 2023-08-11 01:35 | ED.DENTAL ---
HPI - Dental/Oral General Chief complaint: Dental/Oral Stated complaint: Dental Pain Time Seen by Provider: 08/11/23 01:34 Source: patient Mode of arrival: ambulatory Limitations: no limitations History of Present Illness HPI Narrative: patient is a 38-year-old male with poor dentition and pain bilateral lower jaw. MD Complaint: tooth pain Location: Tooth # ( Twenty-seven through 32 and 22 through 17 areas; multiple missing teeth and severe decay complaints) Onset (ago): day(s) (3) Duration: constant Severity: moderate Severity scale (1-10): 7 Relieving factors: nothing Exacerbating factors: chewing, cold, heat and drinking fluids Context: history of dental caries and poor dental care Treatment prior to arrival: topical analgesic and oral analgesic Related Data Allergies Allergy/AdvReac Type Severity Reaction Status Date / Time No Known Allergies Allergy Verified 09/05/22 18:07 Review of Systems Review of Systems: All systems reviewed & are unremarkable except as noted in HPI and below Constitutional: Constitutional: Reports no additional constitutional complaints Eyes: Eyes: Reports no additional eye complaints ENT: Reports system reviewed and no additional complaints, except as documented Cardiovascular: Cardiovascular: Reports no additional cardiovascular complaints Respiratory: Respiratory: Reports no additional respiratory complaints Gastrointestinal: Gastrointestinal: Reports no additional gastrointestinal complaints Genitourinary: Genitourinary: Reports no additional male genitourinary complaints Musculoskeletal: Musculoskeletal: Reports no additional musculoskeletal complaints Integumentary/Breasts: Skin/Breast: Reports system reviewed and no additional complaints, except as docu Neurologic: Reports system reviewed and no additional complaints, except as documented Psychiatric: Psychiatric: Reports no additional psychiatric complaints Endocrine: Endocrine: Reports no additional endocrine complaints Hematologic/Lymphatic: Hematologic/Lymphatic: Reports no additional hematologic/lymphatic complaints Allergic/Immunologic: Allergic/Immunologic: Reports no additional allergic/immunologic complaints [facility] Past Medical History Medical History Cellulitis of knee, left Family History Family History Mother Patient's mother is in good health Father Patient's father is in good health Sibling Patient's sister is in good health Patient's brother is in good health Other Family history of elevated blood lipids Hypertension Social History Social History Smoking packs per day: 1 Smoking cigarettes per day: 20.0 Smoking status: Current every day smoker Tobacco type: cigarettes Second hand tobacco smoke exposure: Yes Alcohol intake: never Exam Const: General: healthy appearing Nutritional Appearance: well nourished Orientation/consciousness: patient oriented x3 HENMT: Head: normal to inspection Ears: external ears normal Face/Nose/Sinus: Normal external nose present Other: multiple severe dental caries and dental fractures in the lower jaw bilaterally of the molars with some missing molars; no abscesses Eyes: Conjunctivae: conjunctivae normal Pupils: Equal, round and reactive pupils present EOM: EOMs intact bilaterally Neck: Neck: normal visual inspection Chest: Chest palpation & inspection: normal inspection of the chest Resp: Effort & Inspection: normal respiratory effort and not labored Auscultation: clear to auscultation bilaterally Cardio: Rate: regular rate Rhythm: regular rhythm Heart sounds: no murmurs GI: Inspection: non-distended Auscultation: normal bowel sounds : General: Yes bladder normal to palpation Back/Spine/Pelvis: Back: no CVA tenderness Skin: General skin exam: normal
[2023-08-11 01:41] VITALS: BP 183/125; BP 195/140
[2023-08-11] MEDS: KETOROLAC (*BKC) 60 MG/2 ML VIAL IM (01:55)
[2023-08-11] MEDS: LOSARTAN POTASSIUM 50 MG TABLET PO (01:57)
[2023-08-11] MEDS: AMOXICILLIN/CLAVULANATE K 500-125 MG TAB 1 TABLET PO (01:57)
[2023-08-11] MEDS: cloNIDine HCL 0.1 MG TABLET PO (02:30)
[2023-08-11 02:36] VITALS: BP 183/130
== END 2023-08-11 02:33 | disposition home or self-care (01) ==
LOC: CHSED 02:00
PROVIDERS: Emergency Provider Emergency Medicine; PCP Family Medicine
DX: R68.84 Jaw pain (principal); R03.0 Elevated blood-pressure reading, without diagnosis of hypertension; F17.210 Nicotine dependence, cigarettes, uncomplicated
CPT/HCPCS: 96372; 99283; A9270; J1885

== ENCOUNTER 2023-10-17 23:40 | Emergency (ER) | payer SELFPAY ==
[2023-10-17 23:45] VITALS: BP 138/108; PULSE 99; RESP 18; TEMP 36.3; O2SAT 96
--- NOTE | 2023-10-17 23:50 | ED.EXTPRO ---
HPI - Extremity Problem General Chief complaint: Extremity Problem,Nontraumatic Stated complaint: Swelling in both legs Time Seen by Provider: 10/17/23 23:41 Source: patient Mode of arrival: ambulatory Limitations: no limitations History of Present Illness HPI Narrative: Patient is a 38-year-old male with a significant past medical history presents today with bilateral lower extremity edema. Patient states he has had an echocardiogram done before and did show little bit of heart failure. He states that he does have a chronic venous insufficiency as well and has bilateral lower extremity edema chronic. However has gotten worse in the last few days and has been weeping. He also has a couple of cuts on that left lower extremity. He states he is here a little bit painful and they do resemble some cellulitis. MD Complaint: extremity swelling ( Bilateral pitting edema) Onset (ago): day(s) Relieving factors: nothing Exacerbating factors: nothing Associated symptoms: denies other symptoms Related Data Allergies Allergy/AdvReac Type Severity Reaction Status Date / Time No Known Allergies Allergy Verified 09/05/22 18:07 Review of Systems Review of Systems: All systems reviewed & are unremarkable except as noted in HPI and below Constitutional: Constitutional: Reports as per HPI Eyes: Eyes: Reports no additional eye complaints ENT: Reports system reviewed and no additional complaints, except as documented Cardiovascular: Comments: bilateral lower extremity edema Respiratory: Respiratory: Reports no additional respiratory complaints Gastrointestinal: Gastrointestinal: Reports no additional gastrointestinal complaints Genitourinary: Genitourinary: Reports no additional male genitourinary complaints Musculoskeletal: Musculoskeletal: Reports no additional musculoskeletal complaints Integumentary/Breasts: Skin/Breast: Reports system reviewed and no additional complaints, except as docu Neurologic: Reports system reviewed and no additional complaints, except as documented Psychiatric: Psychiatric: Reports no additional psychiatric complaints Endocrine: Endocrine: Reports no additional endocrine complaints Hematologic/Lymphatic: Hematologic/Lymphatic: Reports no additional hematologic/lymphatic complaints Allergic/Immunologic: Allergic/Immunologic: Reports no additional allergic/immunologic complaints PMFSH Past Medical History Medical History Cellulitis of knee, left Family History Family History Mother Patient's mother is in good health Father Patient's father is in good health Sibling Patient's sister is in good health Patient's brother is in good health Other Family history of elevated blood lipids Hypertension Social History Social History Smoking packs per day: 1 Smoking cigarettes per day: 20.0 Smoking status: Current every day smoker Tobacco type: cigarettes Second hand tobacco smoke exposure: Yes Alcohol intake: never Exam Const: General: healthy appearing Nutritional Appearance: well nourished Orientation/consciousness: patient oriented x3 HENMT: Head: normal to inspection Ears: external ears normal Face/Nose/Sinus: Normal external nose present Eyes: Conjunctivae: conjunctivae normal Pupils: Equal, round and reactive pupils present EOM: EOMs intact bilaterally Neck: Neck: normal visual inspection Chest: Chest palpation & inspection: normal inspection of the chest Resp: Effort & Inspection: normal respiratory effort Auscultation: clear to auscultation bilaterally Cardio: Rate: regular rate Rhythm: regular rhythm Other: bilateral lower extremity 2+ pitting edema GI: GI Palp: Yes Soft to palpation Back/Spine/Pelvis: Back: no CVA tenderness Skin: General skin exam: normal color Rashes
--- NOTE | 2023-10-17 23:51 | PC.NURSE ---
lab notified of blood work
[2023-10-18] MEDS: DOXYCYCLINE HYCLATE 100 MG TABLET PO (00:02)
[2023-10-18] MEDS: FUROSEMIDE INJ 40 MG/4 ML VIAL IV PUSH (00:02)
[2023-10-18 00:06] LABS: Basophils Absolute Auto 0.05 K/mm3 (0.00-0.10); Basophils Percent Auto 0.6 % (0.0-1.0); Eosinophils Absolute Auto 0.21 K/mm3 (0.02-0.50); Eosinophils Percent Auto 2.6 % (1.0-6.0); Hematocrit 42.1 % (40.0-54.0); Hemoglobin 13.6 g/dL (14.0-18.0); Immature Granulocyte Absolute 0.07 K/mm3 (0.00-0.00); Immature Granulocyte Percent A 0.9 % (0.0-0.0); Lymphocytes Absolute Auto 2.22 K/mm3 (1.10-4.50); Lymphocytes Percent Auto 27.8 % (18.0-42.0); Mean Corpuscular HGB Conc 32.3 g/dL (32-36); Mean Corpuscular Hemoglobin 29.6 pg (27.0-31.0); Mean Corpuscular Volume 91.5 fL (78.0-102.0); Mean Platelet Volume 10.4 fl (8.7-11.0); Monocytes Absolute Auto 0.59 K/mm3 (0.10-0.90); Monocytes Percent Auto 7.4 % (2.0-11.0); Neutrophils Absolute Auto 4.85 K/mm3 (1.70-7.20); Neutrophils Percent Auto 60.7 % (50.0-70.0); Platelet Count Result 209 K/mm3 (150-420); Red Cell Distribution Width 13.8 % (11.6-14.4)
--- NOTE | 2023-10-18 00:10 | PC.NURSE ---
urinal was given. patient was also shown where the bathroom is
[2023-10-18 00:20] LABS: Alanine Aminotransferase 36 U/L (16-63); Albumin Level 3.2 g/dL (3.4-5.0); Alkaline Phosphatase 54 U/L (46-116); Anion Gap 5 mmol/L (4-12); Aspartate Amino Transferase 29 U/L (15-37); Bilirubin,Total 0.4 mg/dL (0.00-1.00); Blood Urea Nitrogen 13 mg/dL (7-18); Calcium 9.1 mg/dL (8.5-10.1); Carbon Dioxide 32 mmol/L (21-32); Chloride 104 mmol/L (98-108); Estimated CRCL calculation 201 ml/min; Estimated Glomerular Filt Rate > 60; Glucose 101 mg/dL (70-99); Osmolality Calculated 292 mOsm/kg (285-295); Sodium 141 mmol/L (136-145); Total Protein 8.1 g/dL (6.4-8.2)
--- NOTE | 2023-10-18 00:26 | PC.NURSE ---
patient ambulated to the restroom and back to room
[2023-10-18 00:43] LABS: NT Pro B Type Natriuretic Pept 108 pg/mL (0-125)
--- NOTE | 2023-10-18 00:43 | PC.NURSE ---
patient ambulated to the bathroom and back to room
[2023-10-18 00:58] VITALS: BP 161/109; PULSE 79; RESP 18; O2SAT 96
--- NOTE | 2023-10-18 00:59 | PC.NURSE ---
patient reports blood pressure 161/109 is normal for him. ER provider was notified
== END 2023-10-18 01:05 | disposition home or self-care (01) ==
PROVIDERS: Emergency Provider Family Medicine; PCP Family Medicine
DX: R60.0 Localized edema (principal); I87.8 Other specified disorders of veins; L03.90 Cellulitis, unspecified; F17.210 Nicotine dependence, cigarettes, uncomplicated
CPT/HCPCS: 36415; 80053; 83880; 85025; 96374; 99284; A9270; J1940

== ENCOUNTER 2024-01-10 00:53 | Emergency (ER) | payer SELFPAY ==
[2024-01-10 01:00] VITALS: BP 163/120; PULSE 90; RESP 20; TEMP 36.7; O2SAT 98
--- NOTE | 2024-01-10 01:03 | ED.DENTAL ---
HPI - Dental/Oral General Chief complaint: Dental/Oral Stated complaint: Dental Problem Time Seen by Provider: 01/10/24 01:02 Source: patient and family Mode of arrival: ambulatory Limitations: no limitations History of Present Illness HPI Narrative: Patient is a 38-year-old male known to the ER for recurrent dental problems. He has not gotten into the dentist as there is a long wait with his insurance. Patient also needed his blood pressure medicine prescription and a note for work. MD Complaint: tooth pain Onset (ago): week(s) (2) Duration: constant Severity: moderate Severity scale (1-10): 5 Relieving factors: nothing Exacerbating factors: chewing, cold, heat and drinking fluids Context: history of dental caries and poor dental care Associated symptoms: gum swelling Treatment prior to arrival: oral analgesic Related Data Allergies Allergy/AdvReac Type Severity Reaction Status Date / Time No Known Allergies Allergy Verified 09/05/22 18:07 Review of Systems Review of Systems: All systems reviewed & are unremarkable except as noted in HPI and below Constitutional: Constitutional: Reports no additional constitutional complaints Eyes: Eyes: Reports no additional eye complaints ENT: Reports system reviewed and no additional complaints, except as documented Cardiovascular: Cardiovascular: Reports no additional cardiovascular complaints Respiratory: Respiratory: Reports no additional respiratory complaints Gastrointestinal: Gastrointestinal: Reports no additional gastrointestinal complaints Genitourinary: Genitourinary: Reports no additional male genitourinary complaints Musculoskeletal: Musculoskeletal: Reports no additional musculoskeletal complaints Integumentary/Breasts: Skin/Breast: Reports system reviewed and no additional complaints, except as docu Neurologic: Reports system reviewed and no additional complaints, except as documented Psychiatric: Psychiatric: Reports no additional psychiatric complaints Endocrine: Endocrine: Reports no additional endocrine complaints Hematologic/Lymphatic: Hematologic/Lymphatic: Reports no additional hematologic/lymphatic complaints Allergic/Immunologic: Allergic/Immunologic: Reports no additional allergic/immunologic complaints PMFSH Past Medical History Medical History Cellulitis of knee, left Family History Family History Mother Patient's mother is in good health Father Patient's father is in good health Sibling Patient's sister is in good health Patient's brother is in good health Other Family history of elevated blood lipids Hypertension Social History Social History Smoking packs per day: 1 Smoking cigarettes per day: 20.0 Smoking status: Current every day smoker Tobacco type: cigarettes Second hand tobacco smoke exposure: Yes Alcohol intake: never Exam Const: General: healthy appearing Nutritional Appearance: well nourished Orientation/consciousness: patient oriented x3 HENMT: Head: normal to inspection Ears: external ears normal Face/Nose/Sinus: Normal external nose present Other: Left upper maxilla dental severe tooth decay and otherwise dental caries throughout the mouth Eyes: Conjunctivae: conjunctivae normal Pupils: Equal, round and reactive pupils present EOM: EOMs intact bilaterally Neck: Neck: normal visual inspection Chest: Chest palpation & inspection: normal inspection of the chest Resp: Effort & Inspection: normal respiratory effort and not labored Auscultation: clear to auscultation bilaterally and no crackles Cardio: Rate: regular rate Rhythm: regular rhythm Heart sounds: no murmurs GI: Inspection: non-distended GI Palp: Yes Soft to palpation and No Tenderness to palpation present (GI) Auscultation: normal bowel sounds : G
[2024-01-10] MEDS: AMOXICILLIN/CLAVULANATE K 875-125 MG TAB 1 TABLET PO (01:14)
[2024-01-10] MEDS: cloNIDine HCL 0.1 MG TABLET PO (01:15)
[2024-01-10 01:29] VITALS: BP 165/118; PULSE 85; RESP 18; O2SAT 97
== END 2024-01-10 01:29 | disposition home or self-care (01) ==
LOC: CHSED 01:14
PROVIDERS: Emergency Provider Emergency Medicine; PCP Family Medicine
DX: R68.84 Jaw pain (principal); I10 Essential (primary) hypertension; F17.210 Nicotine dependence, cigarettes, uncomplicated
CPT/HCPCS: 99283; A9270

== ENCOUNTER 2024-04-08 00:56 | Emergency (ER) | payer SELFPAY ==
[2024-04-08 01:05] VITALS: PULSE 66; RESP 17; TEMP 36.4; O2SAT 100
[2024-04-08 01:07] VITALS: BP 185/116
--- NOTE | 2024-04-08 01:13 | ED.GENADULT ---
HPI - General Adult General Chief complaint: Skin/Abscess/Foreign Body Stated complaint: Leg Problem Time Seen by Provider: 04/08/24 01:12 History of Present Illness HPI narrative: 38 years old white male came to the emergency room because of painful lumps at the back of the left lower leg noticed few days ago. He denies any trauma, fever, chills, nausea, vomiting. Patient is telling me that he used to be over 400 lb, lost a lot of weight, currently 126 K . Patient is supposed to be on blood pressure medication, never had his prescription filled. Patient does not have a family physician, his significant other is telling me that the are between insurance at this time. Related Data Allergies Allergy/AdvReac Type Severity Reaction Status Date / Time No Known Allergies Allergy Verified 04/08/24 01:14 Review of Systems Review of Systems: All systems reviewed & are unremarkable except as noted in HPI and below PMFSH Past Medical History Medical History Cellulitis of knee, left Family History Family History Mother Patient's mother is in good health Father Patient's father is in good health Sibling Patient's sister is in good health Patient's brother is in good health Other Family history of elevated blood lipids Hypertension Social History Social History Smoking packs per day: 1 Smoking cigarettes per day: 20.0 Smoking status: Current every day smoker Tobacco type: cigarettes Second hand tobacco smoke exposure: Yes Alcohol intake: never Exam Narrative: General appearance: Well-developed, well-nourished Skin: Normal color , Dark brownish discolored skin of the lower legs consistent with chronic stasis dermatitis bilaterally, varicose vein bilaterally more on the left, tender dora like feeling under the skin of the left lower leg posteriorly consistent with superficial thrombophlebitis, tender, slightly warm to touch, secondary bacterial infection is a possibility no discharge, no fluctuation. Head: Normocephalic, nontraumatic Chest and respiratory: Airway patent, no respiratory distress, no accessory muscle use Heart: Regular rate/rhythm Abdomen: Soft, nontender, no organomegaly, quiet bowel sounds Vascular: Normal peripheral pulses, normal capillary refill. Musculoskeletal: Normal range of motion, nontender back Neurologic: Alert and oriented ?3, ADMINISTRATIVE SERVICES DIRECTOR is normal as tested, no gross motor deficit Course Vital Signs Vital signs: Vital Signs Temperature 36.4 C L 04/08/24 01:05 Pulse Rate 66 04/08/24 01:05 Respiratory Rate 17 04/08/24 01:05 Pulse Oximetry 100 04/08/24 01:05 Oxygen Delivery Room Air 04/08/24 01:05 Temperature 36.4 C L 04/08/24 01:05 Pulse Rate 66 04/08/24 01:05 Respiratory Rate 17 04/08/24 01:05 Pulse Oximetry 100 04/08/24 01:05 Oxygen Delivery Room Air 04/08/24 01:05 Medical Decision Making MDM Narrative Medical decision making narrative: patient presents with tender lumps at the back of the left leg posteriorly Vital signs showing blood pressure 185/116, patient does not take his blood pressure medications. Physical examination as above Differential diagnosis superficial thrombophlebitis, cellulitis, chronic stasis dermatitis, chronic venous insufficiency, elevated blood pressure, noncompliance with medications. Labs and/or imaging are not required at this time. Patient will be discharged on losartan/ hydrochlorothiazide, ibuprofen, warm compresses, Keflex, compression stocking. The pt was discharged to home.the pt,s condition upon discharge was fair,education was provided to the pt in reference to the final impression,discharge study results,treatment,prognosis and need for follow up . Vital Signs Vital Signs: Vital Signs Temperature 36.4 C L 04/08/24 01:05 Pulse Rate 66 04/08/24 01:05 Respiratory Rate 17 04/08/24 01:05 Pulse Oximetry 100 04/08/24 01:05 Oxygen Delivery Room Air 04/08/24 01:05 Temperature 36.4 C L 04/08/24 01:05 Pulse Rate 66 04/08/24 01:05 Respiratory Rate 17 04/08/24 01:05 Pulse Oximetry 100 04/08/24 01:05 Oxygen Delivery Room Air 04/08/24 01:05 Critical Care Time Critical Care Time Critical Care Time: No Discharge Plan Discharge Clinical Impression: Superficial thrombophlebitis, Skin infection, Hypertension, Peripheral venous insufficiency Patient Disposition: Home, Self-Care Condition: Stable Instructions: Antibiotic Form, Cellulitis (ED), Superficial Thrombophlebitis (ED), Hypertension (ED), Venous Insufficiency (DC) Additional Instructions: Return if symptoms are worsening , call your family physician for appointment, see her family doctor in 5-7 days, take Tylenol as as needed for aches and pain, continue home medications. Warm compresses, keep leg elevated, compression stocking Prescriptions: New cephalexin 500 mg capsule 500 mg PO Q6H 10 Days Qty: 40 0RF ibuprofen 600 mg tablet 600 mg PO Q6H PRN (Reason: pain) Qty: 20 0RF losartan-hydrochlorothiazide [Hyzaar] 50-12.5 mg tablet 1 tablet PO DAILY Qty: 30 0RF Follow-up/Referrals: James,Prieto Rutherford MD [Primary Care Provider] -
[2024-04-08 01:28] VITALS: BP 151/111
== END 2024-04-08 01:43 | disposition home or self-care (01) ==
PROVIDERS: Emergency Provider Emergency Medicine; PCP Family Medicine
DX: I80.02 Phlebitis and thrombophlebitis of superficial vessels of left lower extremity (principal); L08.9 Local infection of the skin and subcutaneous tissue, unspecified; I10 Essential (primary) hypertension; I87.2 Venous insufficiency (chronic) (peripheral); F17.210 Nicotine dependence, cigarettes, uncomplicated
CPT/HCPCS: 99283

== ENCOUNTER 2024-06-10 23:28 | Emergency (ER) | payer OTHER, SELFPAY ==
[2024-06-10 23:28] VITALS: BP 144/91; PULSE 98; RESP 20; TEMP 37.2; O2SAT 93
--- OUTSIDE RECORDS SUMMARY | 2024-06-10 23:34 | XMS_ITS | Referral Summary ---
Author Organization [facility] Address [address] [place] [address] Care Team Providers Care Pizzamaker Name Role Phone Prieto Ramirez MD Primary Care Provider Allergies No known active allergies Medications losartan (COZAAR) 50 mg tabletIndication s:Hypertension, essential Take 1 tablet (50 mg total) by mouth daily 30 tablet 11 08/21/2021 Active Active Problems Problem Noted Date Diagnosed Date Encounter to establish care 08/21/2021 Assessment & Plan (08/21/2021 4:32 PM CDT): A initial well visit to establish care has been performed today. Julio Willingham is up to date on screening tests. He is in need of None- no screening indicated at this time. He is up to date on needed preventative vaccinations. Amoxicillin trial, for apparent cellulitis behind left thigh X-ray also ordered due to history of leg trauma Discussed lymphedema. Will need to take steps to reduce weight, reduce fluids in the tissue. Ironically, if you drink more water that should help (helps the kidneys do their work). Dyspnea on exertion 12/18/2020 Fatigue 12/18/2020 Hypertension, essential 12/18/2020 Assessment & Plan (08/21/2021 4:32 PM CDT): Blood pressure elevated on initial reading. Losartan 50 mg daily for starters Discussed the need for dietary adjustment. Handout for DASH diet given Left ventricular hypertrophy 12/18/2020 Lower extremity edema 12/18/2020 Class 3 severe obesity due t o excess calories with serious comorbidity and body mass index (BMI) of 50.0 to 59.9 in adult 12/18/2020 Assessment & Plan (08/21/2021 4:29 PM CDT): BMI Follow-up includes: nutrition counseling, exercise counseling and education provided. Snoring 12/18/2020 Tobacco dependence syndrome 12/18/2020 Lymphedema associated with obesity Venous stasis dermatitis of both lower extremiti es Immunizations Name Administration Dates Next Due DTP 12/04/1990, 8,1986, 7,1986 Hep B, Adolescent or Pediatric 12/03/1996,1996,06/11/1996 HiB 08/09/1988 Influenza, Unspecified 05/05/2022(Deferr ed: Patient Refused),05/05/2021(Deferred: Patient Refused),05/05/2020(Deferred: Patient Refused) MMR 12/04/1990,09/13/1987 OPV 12/04/1990, 8,1986, 7 Pneumococcal Polysaccharide PPV23 05/05/2013 Td, adsorbed 11/24/2001 Tdap 05/05/2013 Social History Tobacco Use Types Packs/Day Years Used Date Smoking Tobacco: Every Day Cigarettes 1 24.1 Started: 2000 Smokeless Tobacco: Never Tobacco Cessation:Ready to Q uit: No; Counseling Given: Yes AUDIT-C Answer Date Recorded Q1: How often do you have a drink containing alc ohol? Monthly or less 08/21/2021 Average Number of Drinks Not on file 022 Q3: How often do you have si x or more drinks on one occasion? Never 08/21/2021 PHQ-2 Answer Date Recorded PHQ-2 Total Score (If total score is 3 or more points, staff should administer the PHQ-9) 0 08/21/2021 Exercise Vital Sign Answer Date Recorde d On average, how many days pe r week do you engage in moderate to strenuous exercise (like a brisk walk)? 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 on file Not on file Not on file Last Filed Vital Signs Vital Sign Reading Time Taken Comments Blood Pressure 136/96 08/21/2021 4:19 PM CDT Pulse 87 08/21/2021 3:43 PM CDT Temperature 36.8 C (98.2 F) 08/21/2021 3:43 PM CDT Respiratory Rate 22 08/21/2021 3:43 PM CDT Oxygen Saturation 94% 08/21/2021 3:43 PM CDT Inhaled Oxygen Concentration - - Weight 175.7 kg (387 lb 6.4 oz) 08/21/2021 3:43 PM CDT Height 178 cm (5' 10.08 ) 08/21/2021 3:43 PM CDT Body Mass Index 55.46 08/21/2021 3:43 PM CDT Plan of Treatment Not on file Insurance [facility] Care Teams Pizzamaker Relationship Specialty Start Date End Date Prieto Ramirez MD [address] [place] [address] PCP - General Family Medicine 08/20/21
--- OUTSIDE RECORDS SUMMARY | 2024-06-10 23:34 | XMS_ITS | Clinical Summary ---
Author Organization [facility] Address [address] [place] [address] Care Team Providers Care Washing Machine Mechanic Name Role Phone Prieto Ramirez MD Primary [...] PPV23 05/05/2013 Td, adsorbed 11/24/2001 Tdap 05/05/2013 Surgical History Surgery Date Site/Laterality Comments PLASTIC SURGERY 05/05/1994 - 05/04/1995 plastic surgery on his forehead in 1994 Medical History Medical History Date Comments Hypertension 12/18/2020 Morbid obesity (HCC) Lymphedema associated with obesity Venous stasis dermatitis of both lower extremiti es Family History Medical History Relation Name Comments No Known Problems Brother 1 No Known Problems Brother 2 No Known Problems Father Alcohol abuse Maternal Grandfather Coronary artery disease Maternal Grandfather Dementia Maternal Grandfather Diabetes Maternal Grandfather Heart failure Maternal Grandfather Hypertension Maternal Grandfather Kidney disease Maternal Grandfather Hypertension Maternal Grandmother Obesity Maternal Grandmother COPD Mother Hypertension Mother Obesity Mother Sleep apnea Mother No Known Problems Paternal Grandfather No Known Problems Paternal Grandmother No Known Problems Sister Relation Name Status Comments Brother 1 Alive Brother 2 Alive Father Other Maternal Grandfather Maternal Grandmother Alive Mother Alive Paternal Grandfather Paternal Grandmother Sister Alive Social History Tobacco Use Types Packs/Day Years [...] on file 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 Gender Identity Not on file Sexual Orientation Not on file 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 on file Not on file Not on file Obstetrics History Last Filed Vital Signs Vital Sign Reading [...] 08/21/2021 3:43 PM CDT Plan of Treatment Health Maintenance Due Date Last Done Comments Hepatitis C Screening 1986 Varicella Vaccines (1 of 2 - 13+ 2-dose series) 1999 Pneumococcal vaccine <65 (2 of 2 - PCV) 05/05/2014 05/05/2013 Depression Screening 08/21/2022 08/21/2021 Regular Well Visit/Exam 18-64 08/21/2022 08/21/2021 DTaP/Tdap/Td Vaccine (7 - Td or Tdap) 05/05/2023 05/05/2013, 11/24/2001, 12/04/1990, Additional history exists Influenza Vaccine (#1) 2024 Hepatitis B Screening Completed 12/03/1996 , 07/09/1996, 06/11/1996 HPV Vaccines Aged Out No longer eligi ble based on patient's age to complete this topic Insurance [facility] Care Teams Washing Machine Mechanic Relationship Specialty [place] [address] [place] [id number] PCP - General Family Medicine 08/20/21
--- OUTSIDE RECORDS SUMMARY | 2024-06-10 23:34 | XMS_ITS | CONTINUITY OF CARE DOCUMENT ---
Author Name daniel sanchez Address Unknown Organization [facility] Address [address] [place] [address] Phone [phone] Care Team Providers Care Small Equipment Operator Name Role Phone Gautam COYLE, Suri Unavailable [place] BROADCAST TRANSMITTER OPERATOR-BC, Maggie Gibson Unavailable [phone] PROBLEMS Condition Status Date Provider Notes [facility]--echo 11/2020 ef 54% active Suri quiroga MD Lower extremity edema active Suri Brock Dyspnea on exertion active Suri Florez MD Snoring active Suri Florez MD Fatigue active Suri Florez MD Hypertension active Suri Florez MD Tobacco abuse active Suri Florez MD Morbid obesity active Suri Florez MD ENCOUNTERS Date Type Provider Location Encounter Diag nosis - In-person encounter Office Visit Suri Florez MD [facility] SOCIAL HISTORY Date Observation Value Provider social history reviewed E&M reviewed - no changes required Trell Painting INSURANCE PROVIDERS Payer name Policy type / Coverage type [place] red [employer] [place] MEDICAID (2) Medicaid [id number] TREATMENT PLAN Date Name Performer [id number],S, Trell Waller i [id number],S, Trell Waller i [id number],S, Trell Waller i [id number],S, Trell Ahmedza i [id number],S, Trell Ahmedza i [id number],S, Trell Lairdmedza i Cardiology NO SHOW Trell Ahmedzai Cardiology NO SHOW Trell Ahmedzai Cardiology NO SHOW Trell Ahmedzai Cardiology NO SHOW Trell Ahmedzai Cardiology NO SHOW Trell Ahmedzai Cardiology NO SHOW Trell Ahmedzai
--- NOTE | 2024-06-10 23:40 | ED_ITS ---
HPI - Extremity Problem General Chief complaint: Skin/Abscess/Foreign Body Stated complaint: left leg pain Time Seen by Provider: 06/10/24 23:39 Source: patient Mode of arrival: ambulatory Limitations: no limitations History of Present Illness HPI Narrative: This is a 39-year-old male presents with pain in the posterior left calf region he has varicose veins So has a protruding their clothes vein in the posterior left calf that is tender with warmth with no leg swelling no calf pain no edema no fever chills. Complaint: extremity pain Onset (ago): day(s) Pain Consistency: constant Location: left Severity scale (1-10): 5 Quality: aching Radiation: distal Relieving factors: nothing Related Data Allergies Allergy/AdvReac Type Severity Reaction Status Date / Time No Known Allergies Allergy Verified 06/10/24 23:35 Review of Systems Review of Systems: All systems reviewed & are unremarkable except as noted in HPI and below PMFSH Past Medical History Medical History Cellulitis of knee, left Family History Family History Mother Patient's mother is in good health Father Patient's father is in good health Sibling Patient's sister is in good health Patient's brother is in good health Other Family history of elevated blood lipids Hypertension Social History Social History Smoking packs per day: 1 Smoking cigarettes per day: 20.0 Smoking status: Current every day smoker Tobacco type: cigarettes Second hand tobacco smoke exposure: Yes Alcohol intake: never Exam Const: General: healthy appearing and no acute distress Nutritional Appearance: well nourished Orientation/consciousness: patient oriented x3 Limitations: no limitations HENMT: Head: normal to inspection Eyes: Conjunctivae: conjunctivae normal Neck: Neck: normal visual inspection Resp: Effort & Inspection: normal respiratory effort Auscultation: clear to auscultation bilaterally Cardio: Rate: regular rate Rhythm: regular rhythm GI: GI Palp: Yes Soft to palpation Auscultation: normal bowel sounds Skin: Other: Superficial phlebitis posterior left leg with warmth and tenderness with palpation. Course Course Emergency Course: Administered a dose of Augmentin and naproxen. Impression superficial phlebitis at/ cellulitis Disposition home Condition stable Critical Care Time Critical Care Time Critical Care Time: No Discharge Plan Discharge Clinical Impression: Cellulitis Qualifiers: Site of cellulitis: extremity Site of cellulitis of extremity: lower extremity Laterality: left Qualified Code(s): L03.116 - Cellulitis of left lower limb Superficial thrombophlebitis Qualifiers: Superficial thrombophlebitis-Involved body area: lower extremity Laterality: left Qualified Code(s): I80.02 - Phlebitis and thrombophlebitis of superficial vessels of left lower extremity Patient Disposition: Home, Self-Care Condition: Stable Instructions: Antibiotic Form, Cellulitis (ED), Superficial Thrombophlebitis (ED) Additional Instructions: advised take medication as prescribed and follow with primary within the next 2 to 3 weeks further evaluation and treatment. Patient Language: Upper Sorbian Prescriptions: New amoxicillin-pot clavulanate [Augmentin] 500-125 mg tablet 1 tablet PO TID Qty: 30 0RF naproxen 500 mg tablet 500 mg PO BID Qty: 14 0RF No Action cephalexin 500 mg capsule 500 mg PO Q6H 10 Days Qty: 40 0RF ibuprofen 600 mg tablet 600 mg PO Q6H PRN (Reason: pain) Qty: 20 0RF losartan-hydrochlorothiazide [Hyzaar] 50-12.5 mg tablet 1 tablet PO DAILY Qty: 30 0RF Follow-up/Referrals: James,Prieto Rutherford MD [Primary Care Provider] - Time of Disposition: 23:44
[2024-06-10] MEDS: AMOXICILLIN/CLAVULANATE K 875-125 MG TAB 1 TABLET PO (23:53)
[2024-06-10] MEDS: NAPROXEN 250 MG TABLET 500 MG PO (23:53)
--- OUTSIDE RECORDS SUMMARY | 2024-06-10 23:58 | XMS_ITS | CONTINUITY OF CARE DOCUMENT ---
Author Name daniel sanchez Address Unknown Organization [facility] Address [address] [address] [place] [address] Phone [phone] Care Team Providers Care Marble Setter Helper Name Role Phone Gautam COYLE, Suri Unavailable [phone] [place] MERCHANDISING MANAGER-BC, Maggie Gibson Unavailable PROBLEMS Condition Status Date Provider Notes LVH--echo [...] In-person encounter Office Visit Suri Florez MD [facility] SOCIAL HISTORY Date Observation Value Provider social history reviewed E&M reviewed - no changes required Trell Painting INSURANCE PROVIDERS Payer name Policy type / Coverage type [place] red alliance party ID KRANTHI MEDICAID (2) Medicaid [id number] TREATMENT PLAN Date Name Performer [id number],S, Trell Waller i [id number],S, Trell Waller i [id number],S, Trell Waller i [id number],S, Trell Ahmedza i [id number],S, Trell Ahmedza i [id number],S, Trell Lairdmedza i Cardiology NO SHOW Trell Ahmedzai Cardiology NO SHOW Trell Ahmedzai Cardiology NO SHOW Trell Ahmedzai Cardiology NO SHOW Trell Ahmedzai Cardiology NO SHOW Trell Ahmedzai Cardiology NO SHOW Trell Ahmedzai
--- OUTSIDE RECORDS SUMMARY | 2024-06-10 23:58 | XMS_ITS | Clinical Summary ---
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
--- OUTSIDE RECORDS SUMMARY | 2024-06-10 23:58 | XMS_ITS | Referral Summary ---
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 Care Teams Tire Buffer Relationship Specialty Start Date End Date Prieto Ramirez MD [address] [place] [address] PCP - General Family Medicine 08/20/21
== END 2024-06-11 00:06 | disposition home or self-care (01) ==
LOC: CHSED 23:56
PROVIDERS: Emergency Provider Emergency Medicine; PCP Family Medicine
DX: L03.116 Cellulitis of left lower limb (principal); F17.210 Nicotine dependence, cigarettes, uncomplicated
CPT/HCPCS: 99283; A9270

== ENCOUNTER 2024-07-28 00:09 | Emergency (ER) | payer OTHER, SELFPAY ==
--- NOTE | ~2024-07-28 | CT_ITS ---
EXAMINATION: CT chest abdomen pelvis wo con DATE: 07/28/2024 01:09 INDICATION: Nausea and vomiting. Shortness of breath. TECHNIQUE: Computed tomography (CT) of the chest, abdomen, and pelvis was performed without intraveno us contrast. Automated exposure control and iterative reconstruction technique were employed. The dos e-length product was 1487.42 mGy-cm. COMPARISON: CT 05/19/2023 FINDINGS: CHEST CT: There are pneumatoceles in left lower lobe. There is mild atelectasis in left lower lobe. There are a irspace opacities in left upper lobe with air bronchograms, consistent with pneumonia. There is a tra ce left pleural effusion. The heart size is normal. No pericardial effusion. There is mild mediastina l lymphadenopathy, likely reactive. There is mild bilateral gynecomastia. There is mild thoracic spon dylosis. There are old healed bilateral rib fractures. ABDOMEN/PELVIS CT: The liver, gallbladder, spleen, pancreas, adrenal glands, and kidneys are normal. There are no dilate d loops of bowel. The appendix is normal. There are no pathologically enlarged lymph nodes. There is trace pelvic ascites. There is mild lumbar spondylosis. IMPRESSION: 1. Left upper lobe pneumonia. Reviewed, dictated and finalized at location A.
[2024-07-28 00:09] VITALS: BP 165/95; PULSE 89; RESP 14; TEMP 37.5; O2SAT 96
--- OUTSIDE RECORDS SUMMARY | 2024-07-28 00:11 | XMS_ITS | Clinical Summary ---
Author Organization [facility] Address [address] [place] [address] Care Team Providers Care Flask Handler Name Role Phone Prieto Ramirez MD Primary Care Provider Allergies No known active allergies Medications losartan (COZAAR) 50 mg tabletIndication s:Hypertension, essential Take 1 tablet (50 mg total) by mouth daily 30 tablet 11 08/21/2021 Active Active Problems Problem Noted Date Diagnosed Date Annual physical exam 08/21/2021 Assessment & Plan (08/21/2021 4:32 PM [...] stasis dermatitis of both lower extremiti es Encounters Date Type Department Care Team Description 06/15/2024 Telephone [facility] Primary Care at [address] [address] Prieto Ramirez MD from Last 3 Months Immunizations Immunization Administration Dates Next Due DTP 12/04/1990, 8,1986, [...] Date Smoking Tobacco: Every Day Cigarettes 1 24.2 Started: 2000 Smokeless Tobacco: Never Tobacco Cessation:Ready [...] Exercise per Session Not on file 08/21/2021 Sex and Gender Information Value Date Recorded Sex Assigned at Not on file 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
--- OUTSIDE RECORDS SUMMARY | 2024-07-28 00:11 | XMS_ITS | Clinical Summary ---
Author Organization [facility] Address [address] [place] [address] Care Team Providers Care Priming Mixture Carrier Name Role Phone Unavailable Primary Care Provider Unavailabl e Social History Tobacco Use Types Packs/Day Years Used Date Smoking Tobacco: Never Assessed Sex and Gender Information Value Date Recorded Sex Assigned at Not on file Legal Sex Male 7:16 PM CDT Gender Identity Not on file Sexual Orientation Not on file Plan of Treatment Upcoming Encounters Date Type Department Care Team (Late st Contact Info) Description 08/05/2024 2:00 PM CDT Office Visit [facility] Family Medicine - [place] [address] [facility] [address] [place] [address] [phone] Denisa Gipson MD [address] [place] [address] [phone] Health Maintenance Due Date Last Done Comments Annual Physical 1989 Hepatitis C 2004 DTaP, Tdap and Td Vaccines (7 - Td or Tdap) 05/05/2023 05/05/2013, 11/24/2001, 12/04/1990, Additional history exists COVID-19 Vaccine (2023- season) 2024 Influenza Adult (#1) 2024 Hepatitis B Vaccines Completed 12/03/1996, 07/09/1996, 06/11/1996 Pneumococcal Vaccine: Pediatrics (0 to 5 Years) and At-Risk Patients (6 to 64 Years) Aged Out 05/05/2013 No longer eligible based on patient's age to complete this topic HPV Vaccines Aged Out No longer eligi ble based on patient's age to complete this topic Meningococcal B Vaccine Aged Out No l onger eligible based on patient's age to complete this topic Meningococcal Vaccine Aged Out No ta dionte eligible based on patient's age to complete this topic RSV Immunizations Under 20 Months Aged Out No longer eligible based on patient's age to complete this topic Advance Directives Documents on File Type Date Recorded Patient Supervisor Heading Expl anation Advance Directives and Living Will 07/21/2018 12:00 AM ADVANCED DIRECTIVES
--- OUTSIDE RECORDS SUMMARY | 2024-07-28 00:11 | XMS_ITS | CONTINUITY OF CARE DOCUMENT ---
Author Name daniel sanchez Address Unknown Organization [facility] Address [address] [facility] [address] [place] [address] Phone [phone] Care Team Providers Care Supervisor Wet Room Name Role Phone Gautam COYLE, Suri Unavailable [place] TRUCK DRIVER RUBBISH COLLECTOR-BC, Maggie Gibson Unavailable [phone] PROBLEMS Condition Status Date Provider Notes LVH--echo [...] In-person encounter Office Visit Suri Florez MD [facility] Office SOCIAL HISTORY Date Observation Value Provider social history reviewed E&M reviewed - no changes required Trell Painting INSURANCE PROVIDERS Payer name Policy type / Coverage type [place] red libertarian ID KRANTHI MEDICAID (2) Medicaid [id number] TREATMENT PLAN Date Name Performer [id number],S, Trell Waller i [id number],S, Trell Waller i [id number],S, Trell Waller i [id number],S, Trell Ahmedza i [id number],S, Trell Ahmedza i [id number],S, Trell Lairdmedza i Cardiology NO SHOW Trell Ahmedzai Cardiology NO SHOW Trell Ahmedzai Cardiology NO SHOW Trell Ahmedzai Cardiology NO SHOW Trell Ahmedzai Cardiology NO SHOW Trell Ahmedzai Cardiology NO SHOW Trell Ahmedzai
--- OUTSIDE RECORDS SUMMARY | 2024-07-28 00:11 | XMS_ITS | Referral Summary ---
Author Organization [facility] Building A Address [address] [place] [address] Care Team Providers Care Shoeblack Name Role Phone Preito Ramirez MD Primary Care Provider Encounters Date Type Department Care Team Description 06/15/[address] 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
--- OUTSIDE RECORDS SUMMARY | 2024-07-28 00:24 | XMS_ITS | CONTINUITY OF CARE DOCUMENT ---
Author Name daniel sanchez Address Unknown Organization [facility] Address [address] [facility] [address] [place] [address] Phone [phone] Care Team Providers Care Market Analysis Director Name Role Phone Gautam COYLE, Suri Unavailable [place] HOTEL ADMINISTRATIVE ASSISTANT-BC, Maggie Gibson Unavailable [phone] PROBLEMS Condition Status Date Provider Notes LVH--echo [...] In-person encounter Office Visit Suri Florez MD [facility] SOCIAL HISTORY Date Observation Value Provider social history reviewed E&M reviewed - no changes required Trell Painting INSURANCE PROVIDERS Payer name Policy type / Coverage type [place] red constitution party ID KRANTHI MEDICAID (2) Medicaid [id number] TREATMENT PLAN Date Name Performer [id number],S, Trell Waller i [id number],S, Trell Waller i [id number],S, Trell Waller i [id number],S, Trell Ahmedza i [id number],S, Trell Ahmedza i [id number],S, Trell Lairdmedza i Cardiology NO SHOW Trell Ahmedzai Cardiology NO SHOW Trell Ahmedzai Cardiology NO SHOW Trell Ahmedzai Cardiology NO SHOW Trell Ahmedzai Cardiology NO SHOW Trell Ahmedzai Cardiology NO SHOW Trell Ahmedzai
--- NOTE | 2024-07-28 00:33 | ED.URI ---
HPI - URI/Sore Throat General Chief Complaint: Upper Respiratory Infection Stated Complaint: Vomiting Source: patient Mode of arrival: ambulatory Limitations: no limitations History of Present Illness HPI Narrative: patient is a 39-year-old male here for nausea and vomiting without abdominal pain or diarrhea. He has been having fever as well up to 103. Fever has been continuous over the past 3 days. All in all, he has nausea / vomiting and fever alone for the past 3 days. No chest pain or shortness of breath. His thinks he is breathing heavier however. MD elicited complaint: fever and other ( Nausea vomiting and fever) Pertinent past history: other ( hypertension (out of medication)) Onset (ago): day(s) ( 3) Consistency: constant Severity: moderate Pain scale (0-10): 1 Description of mucous: other ( none) Able to tolerate fluids by mouth: No Exacerbating factors: nothing Relieving factors: nothing Context: recent travel ( patient went to [facility] recently) Associated symptoms: fever, abdominal pain ( only with vomiting), nausea and vomiting Treatments prior to arrival: acetaminophen and ibuprofen Related Data Allergies Allergy/AdvReac Type Severity Reaction Status Date / Time No Known Allergies Allergy Verified 07/28/24 00:21 Review of Systems Review of Systems: All systems reviewed & are unremarkable except as noted in HPI and below Constitutional: Constitutional: Reports no additional constitutional complaints Eyes: Eyes: Reports no additional eye complaints ENT: Reports system reviewed and no additional complaints, except as documented Cardiovascular: Cardiovascular: Reports no additional cardiovascular complaints Respiratory: Respiratory: Reports no additional respiratory complaints Gastrointestinal: Gastrointestinal: Reports no additional gastrointestinal complaints Genitourinary: Genitourinary: Reports no additional male genitourinary complaints Musculoskeletal: Musculoskeletal: Reports no additional musculoskeletal complaints Integumentary/Breasts: Skin/Breast: Reports system reviewed and no additional complaints, except as docu Neurologic: Reports system reviewed and no additional complaints, except as documented Psychiatric: Psychiatric: Reports no additional psychiatric complaints Endocrine: Endocrine: Reports no additional endocrine complaints Hematologic/Lymphatic: Hematologic/Lymphatic: Reports no additional hematologic/lymphatic complaints Allergic/Immunologic: Allergic/Immunologic: Reports no additional allergic/immunologic complaints PMFSH Past Medical History Medical History Cellulitis of knee, left Family History Family History Mother Patient's mother is in good health Father Patient's father is in good health Sibling Patient's sister is in good health Patient's brother is in good health Other Family history of elevated blood lipids Hypertension Social History Social History Smoking packs per day: 1 Smoking cigarettes per day: 20.0 Smoking status: Current every day smoker Tobacco type: cigarettes Second hand tobacco smoke exposure: Yes Alcohol intake: never Exam Const: General: ill appearing Nutritional Appearance: well nourished Orientation/consciousness: patient oriented x3 Limitations: no limitations HENMT: Head: normal to inspection Ears: external ears normal Face/Nose/Sinus: Normal external nose present Eyes: Conjunctivae: conjunctivae normal Pupils: Equal, round and reactive pupils present EOM: EOMs intact bilaterally Neck: Neck: normal visual inspection Chest: Chest palpation & inspection: normal inspection of the chest Resp: Effort & Inspection: normal respiratory effort and not labored Auscultation: clear to auscultation bilaterally and no crackles Cardio: Rate: regular rate Rhythm: regular rhythm Heart sounds: no murmurs GI: Inspection: non-distended GI Palp: Yes Soft to palpation, No Tenderness to palpation present (GI), No Guarding due to palpation present (GI), No Rigid due to palpation, No Hernia present, No Palpable mass present and No Rebound tenderness present Auscultation: normal bowel sounds : General: Yes bladder normal to palpation Back/Spine/Pelvis: Back: no CVA tenderness Skin: General skin exam: normal color Rashes: no rashes Wounds: no wounds Neuro: General: patient oriented x3 Cranial nerves: Yes Nystagmus not present Speech: normal speech Gait exam (Neuro): Normal gait present Extrem: General: normal to inspection Psych: Mental Status: mental status grossly normal Affect: normal affect Attitude: cooperative Course Vital Signs Vital signs: Vital Signs Temperature 37.5 C 07/28/24 00:09 Pulse Rate 89 07/28/24 00:09 Respiratory Rate 14 07/28/24 00:09 Blood Pressure 165/95 H 07/28/24 00:09 Pulse Oximetry 96 07/28/24 00:09 Oxygen Delivery Room Air 07/28/24 00:09 Temperature 37.5 C 07/28/24 00:09 Pulse Rate 89 07/28/24 00:09 Respiratory Rate 14 07/28/24 00:09 Blood Pressure 165/95 H 07/28/24 00:09 Pulse Oximetry 96 07/28/24 00:09 Oxygen Delivery Room Air 07/28/24 00:09 MDM - URI/Sore Throat MDM Narrative Medical decision making narrative: patient is a 39-year-old male with nausea vomiting and fever for the past 3 days. We will do workup at this time to include CT scan of the abdomen and pelvis with labs. Left upper lobe pneumonia was noted on CT scan of the chest. Altogether, he has fever and nausea vomiting with left upper lobe pneumonia. He has polysubstance abuse and possibly passed out at 1 point and aspirated. Patient is AAO x4 and has decided against admission at this time. I explained that he may deteriorate and get sepsis and even possibly if he does not stay in the hospital at this time. We made an agreement to it least get 1 dose of Zosyn at this time IV and a bag of IV fluids and change him to clindamycin orally to see how he does at home per his wishes. I decided that he did not need an AMA due to the fact that he is allowing Zosyn IV at this time. We will give him off work. He is not hypoxic. Lab Data Attestation: I reviewed the patient's lab results. 07/28/24 01:30 07/28/24 01:30 Labs: Lab Results 07/28/24 07/28/24 07/28/24 Range/Units 00:19 01:30 01:45 WBC 14.1 H (4.8-10.8) K/mm3 RBC 4.47 L (4.70-6.10) M/mm3 Hgb 13.3 L (14.0-18.0) g/dL Hct 40.5 (40.0-54.0) % MCV 90.6 (78.0-102.0) fL MCH 29.8 (27.0-31.0) pg MCHC 32.8 (32-36) g/dL RDW 13.5 (11.6-14.4) % Plt Count 128 L (150-420) K/mm3 MPV 11.2 H (8.7-11.0) fl Immature Gran % (Auto) Not Reportable Neut % (Auto) Not Reportable Lymph % (Auto) Not Reportable Frederick % (Auto) Not Reportable Eos % (Auto) Not Reportable Baso % (Auto) Not Reportable Lymph # (Auto) Not Reportable Frederick # (Auto) Not Reportable Eos # (Auto) Not Reportable Baso # (Auto) Not Reportable Abs Immat Gran (auto) Not Reportable Absolute Neuts (auto) Not Reportable Absolute Nucleated RBC Not Reportable Total Counted 100 Neutrophils % (Manual) 88 H (46-73) % Band Neutrophils % 1 (0-6) % Lymphocytes % (Manual) 7 L (18-44) % Monocytes % (Manual) 4 (3-9) % Eosinophils % (Manual) 0 L (1-6) % Basophils % (Manual) 0 (0-1) % Nucleated RBC % Not Reportable Abs Neuts (Manual) 12.54 H (1.3-6.7) K/mm3 Abs Lymphs (Manual) 0.98 L (1.1-4.5) K/mm3 Abs Monocytes (Manual) 0.56 (0.1-0.90) K/mm3 Absolute Eos (Manual) 0.00 L (0.02-0.50) K/mm3 Abs Basophils (Manual) 0.00 (0-0.1) K/mm3 Platelet Estimate Adequate (Adequate) % Immature Plt Fraction 5.9 (1.0-7.0) % Schistocytes Not Reportable Sodium 132 L (136-145) mmol/L Potassium 3.7 (3.5-5.1) mmol/L Chloride 94 L (98-108) mmol/L Carbon Dioxide 31 (21-32) mmol/L Anion Gap 7 (4-12) mmol/L BUN 10 (7-18) mg/dL Creatinine 0.73 (0.70-1.30) mg/dL Estim Creat Clear Calc 153 ml/min Estimated GFR > 60 (59 - ) Glucose 89 (70-99) mg/dL Calculated Osmolality 272 L (285-295) mOsm/kg Lactic Acid Calcium 9.2 (8.5-10.1) mg/dL Total Bilirubin 0.6 (0.00-1.00) mg/dL AST 23 (15-37) U/L ALT 25 (16-63) U/L Alkaline Phosphatase 74 (46-116) U/L Total Protein 8.0 (6.4-8.2) g/dL Albumin 2.8 L (3.4-5.0) g/dL Lipase 16 (16-77) U/L Urine Color (Yellow) Urine Appearance (Clear) Urine pH (5.0-8.0) Ur Specific Kennard (1.010-1.020) Urine Protein (Negative) Urine Glucose (UA) (Negative) Urine Ketones (Negative) Ur Blood (Man) (Negative) Urine Nitrate (Negative) Urine Bilirubin (Negative) Urine Urobilinogen (0.2-1.0) mg/dL Leukocyte Esterase Rfl (Negative) MALVIN/UL Urine RBC (0-2) /hpf Urine WBC (0-3) /hpf Ur Squamous Epith Cells (Few) /hpf Urine Bacteria (None) /hpf Urine Mucus /lpf Urine Opiates Screen Negative (Negative) Urine Methadone Screen Positive A (Negative) Ur Barbiturates Screen Negative (Negative) Ur Phencyclidine Scrn Negative (Negative) Ur Amphetamine Screen Negative (Negative) U Benzodiazepines Scrn Negative (Negative) Urine Cocaine Screen Positive A (Negative) U Cannabinoids Screen Positive A (Negative) Influenza A (RT-PCR) Negative (Negative) Influenza B (RT-PCR) Negative (Negative) RSV (RT-PCR) Negative (Negative) SARS-CoV-2 RNA (RT-PCR) Negative (Negative) 07/28/24 07/28/24 Range/Units 01:50 02:25 WBC (4.8-10.8) K/mm3 RBC (4.70-6.10) M/mm3 Hgb (14.0-18.0) g/dL Hct (40.0-54.0) % MCV (78.0-102.0) fL MCH (27.0-31.0) pg MCHC (32-36) g/dL RDW (11.6-14.4) % Plt Count (150-420) K/mm3 MPV (8.7-11.0) fl Immature Gran % (Auto) Neut % (Auto) Lymph % (Auto) Frederick % (Auto) Eos % (Auto) Baso % (Auto) Lymph # (Auto) Frederick # (Auto) Eos # (Auto) Baso # (Auto) Abs Immat Gran (auto) Absolute Neuts (auto) Absolute Nucleated RBC Total Counted Neutrophils % (Manual) (46-73) % Band Neutrophils % (0-6) % Lymphocytes % (Manual) (18-44) % Monocytes % (Manual) (3-9) % Eosinophils % (Manual) (1-6) % Basophils % (Manual) (0-1) % Nucleated RBC % Abs Neuts (Manual) (1.3-6.7) K/mm3 Abs Lymphs (Manual) (1.1-4.5) K/mm3 Abs Monocytes (Manual) (0.1-0.90) K/mm3 Absolute Eos (Manual) (0.02-0.50) K/mm3 Abs Basophils (Manual) (0-0.1) K/mm3 Platelet Estimate (Adequate) % Immature Plt Fraction (1.0-7.0) % Schistocytes Sodium (136-145) mmol/L Potassium (3.5-5.1) mmol/L Chloride (98-108) mmol/L Carbon Dioxide (21-32) mmol/L Anion Gap (4-12) mmol/L BUN (7-18) mg/dL Creatinine (0.70-1.30) mg/dL Estim Creat Clear Calc ml/min Estimated GFR (59 - ) Glucose (70-99) mg/dL Calculated Osmolality (285-295) mOsm/kg Lactic Acid Pending Calcium (8.5-10.1) mg/dL Total Bilirubin (0.00-1.00) mg/dL AST (15-37) U/L ALT (16-63) U/L Alkaline Phosphatase (46-116) U/L Total Protein (6.4-8.2) g/dL Albumin (3.4-5.0) g/dL Lipase (16-77) U/L Urine Color Dark yellow (Yellow) Urine Appearance Clear (Clear) Urine pH 6.5 (5.0-8.0) Ur Specific Kennard >= 1.030 H (1.010-1.020) Urine Protein 3+ H (Negative) Urine Glucose (UA) Trace H (Negative) Urine Ketones 2+ H (Negative) Ur Blood (Man) Trace-intact H (Negative) Urine Nitrate Negative (Negative) Urine Bilirubin 2+ H (Negative) Urine Urobilinogen >=8.0 (0.2-1.0) mg/dL Leukocyte Esterase Rfl Negative (Negative) MALVIN/UL Urine RBC 0-2 (0-2) /hpf Urine WBC None seen (0-3) /hpf Ur Squamous Epith Cells Few (Few) /hpf Urine Bacteria Trace (None) /hpf Urine Mucus Few H /lpf Urine Opiates Screen (Negative) Urine Methadone Screen (Negative) Ur Barbiturates Screen (Negative) Ur Phencyclidine Scrn (Negative) Ur Amphetamine Screen (Negative) U Benzodiazepines Scrn (Negative) Urine Cocaine Screen (Negative) U Cannabinoids Screen (Negative) Influenza A (RT-PCR) (Negative) Influenza B (RT-PCR) (Negative) RSV (RT-PCR) (Negative) SARS-CoV-2 RNA (RT-PCR) (Negative) Methadone, cocaine and cannabinoids were positive on urine drug screen Imaging Data Attestation: I personally reviewed and interpreted this imaging study as follows: Radiologist's impression: CT scan of the chest abdomen and pelvis without shows left upper lobe pneumonia with lymphadenopathy; normal-appearing appendix and otherwise negative for acute process; there is noted hepatomegaly and splenomegaly which can be followed up as an outpatient Discharge Plan Discharge Clinical Impression: Polysubstance abuse Pneumonia Qualifiers: Pneumonia type: due to unspecified organism Laterality: left Lung location: upper lobe of lung Qualified Code(s): J18.9 - Pneumonia, unspecified organism Patient Disposition: Home, Self-Care Condition: Stable Instructions: Antibiotic Form, Bacterial Pneumonia (DC), Polysubstance Use Disorder (ED) Additional Instructions: please follow-up with the primary doctor in the next week. Come back to the emergency room with any worse symptoms. have your CBC rechecked at follow-up for platelets. They were slightly low. Also further workup on the liver and spleen are needed as they appear enlarged on the CT scan. Patient Language: Nepali Prescriptions: New clindamycin HCl 300 mg capsule 300 mg PO TID 10 Days Qty: 30 0RF ondansetron 4 mg tablet,disintegrating 4 mg PO Q6H PRN (Reason: nausea and vomiting) Qty: 20 0RF No Action losartan-hydrochlorothiazide [Hyzaar] 50-12.5 mg tablet 1 tablet PO DAILY Qty: 30 0RF Follow-up/Referrals: Brandan,Denisa Prieto MD [Primary Care Provider] - Stand Alone Forms: Work/School Release IP Time of Disposition: 02:21
[2024-07-28] MEDS: ONDANSETRON HCL ODT 4 MG TABLET PO (00:51)
[2024-07-28 01:26] LABS: Influenza A QL RT-PCR Negative (Negative); Influenza B QL RT-PCR Negative (Negative); RSV RNA, RT-PCR Negative (Negative); SARS-CoV-2 RNA PCR Negative (Negative)
[2024-07-28 01:38] LABS: Hematocrit 40.5 % (40.0-54.0); Hemoglobin 13.3 g/dL (14.0-18.0); Immature Platelet Fraction Pct 5.9 % (1.0-7.0); Mean Corpuscular HGB Conc 32.8 g/dL (32-36); Mean Corpuscular Hemoglobin 29.8 pg (27.0-31.0); Mean Corpuscular Volume 90.6 fL (78.0-102.0); Mean Platelet Volume 11.2 fl (8.7-11.0); Platelet Count Result 128 K/mm3 (150-420); Red Blood Count 4.47 M/mm3 (4.70-6.10); Red Cell Distribution Width 13.5 % (11.6-14.4); White Blood Count 14.1 K/mm3 (4.8-10.8)
[2024-07-28 01:43] LABS: Lipase 16 U/L (16-77)
[2024-07-28 01:47] LABS: Alanine Aminotransferase 25 U/L (16-63); Albumin Level 2.8 g/dL (3.4-5.0); Alkaline Phosphatase 74 U/L (46-116); Anion Gap 7 mmol/L (4-12); Aspartate Amino Transferase 23 U/L (15-37); Bilirubin,Total 0.6 mg/dL (0.00-1.00); Blood Urea Nitrogen 10 mg/dL (7-18); Calcium 9.2 mg/dL (8.5-10.1); Carbon Dioxide 31 mmol/L (21-32); Chloride 94 mmol/L (98-108); Estimated CRCL calculation 153 ml/min; Estimated Glomerular Filt Rate > 60; Glucose 89 mg/dL (70-99); Osmolality Calculated 272 mOsm/kg (285-295); Potassium 3.7 mmol/L (3.5-5.1); Sodium 132 mmol/L (136-145)
[2024-07-28 01:51] LABS: Band Neutrophils Percent 1 % (0-6); Basophils Percent Manual 0 % (0-1); Eosinophils Percent Manual 0 % (1-6); Lymphocytes Absolute Manual 0.98 K/mm3 (1.1-4.5); Lymphocytes Percent Manual 7 % (18-44); Monocytes Absolute Manual 0.56 K/mm3 (0.1-0.90); Monocytes Percent Manual 4 % (3-9); Neutrophils Absolute Manual 12.54 K/mm3 (1.3-6.7); Neutrophils Percent Manual 88 % (46-73); Platelet Estimate Adequate (Adequate); Total Cells Counted 100
[2024-07-28 02:00] LABS: Add Urine Microscopic? YES; Appearance Urine Clear (Clear); Bilirubin Urine 2+ (Negative); Blood Urine Trace-intact (Negative); Color Urine Dark Yellow (Yellow); Glucose Urine UA Trace (Negative); Ketones Urine 2+ (Negative); Leukocyte Esterase Ur Negative LEU/UL (Negative); Nitrate Urine Negative (Negative); Protein Urine 3+ (Negative); Specific Grav Ur >= 1.030 (1.010-1.020); Urobilinogen Urine >=8.0 mg/dL (0.2-1.0); pH Urine 6.5 (5.0-8.0)
[2024-07-28 02:02] LABS: RBC Urine 0-2 /hpf (0-2); WBC Urine None seen /hpf (0-3)
[2024-07-28 02:03] LABS: Bacteria Urine Trace /hpf; Mucus Urine Few /lpf; Squamous Epithelial Cell Urine Few /hpf (Few)
[2024-07-28 02:09] LABS: Amphetamine Screen Urine Negative (Negative); Barbiturate Screen Urine Negative (Negative); Benzodiazepines Screen Urine Negative (Negative); Cannabinoid Screen Urine Positive (Negative); Cocaine Screen Urine Positive (Negative); Methadone Screen Urine Positive (Negative); Opiate Screen Urine Negative (Negative); Phencyclidine Screen Urine Negative (Negative)
[2024-07-28] MEDS: PIPERACILLIN/TAZ 4.5G/NS 100ML 4.5 GM/100 ML BAG IVPB (02:43)
[2024-07-28] MEDS: SODIUM CHLORIDE 0.9% IV 1,000 ML 999 ML IV CONT (02:44)
[2024-07-28 02:54] LABS: Lactic Acid Reflex 1.4 mmol/L (0.4-2.0)
--- NOTE | 2024-07-28 04:10 | PC.NURSE ---
ERP aware of pt's blood pressure. No new orders. Pt has appt to follow-up with his PCP on 08/05/24.
[2024-07-28 04:12] VITALS: BP 178/109; PULSE 89; RESP 17; TEMP 37.7; O2SAT 96
--- NOTE | 2024-07-29 12:09 | PC.NURSE ---
preliminary right arm blood culture, no growth to date
== END 2024-07-28 04:15 | disposition home or self-care (01) ==
PROVIDERS: Emergency Provider Emergency Medicine; PCP Student in an Organized Health Care Education/Training Program
DX: J18.9 Pneumonia, unspecified organism (principal); F19.10 Other psychoactive substance abuse, uncomplicated; I10 Essential (primary) hypertension; F17.210 Nicotine dependence, cigarettes, uncomplicated; Z20.822 Contact with and (suspected) exposure to COVID-19; Z79.1 Long term (current) use of non-steroidal anti-inflammatories (NSAID); Z79.899 Other long term (current) drug therapy
CPT/HCPCS: 36415; 71250; 74176; 80053; 80307; 81001; 83605; 83690; 85025; 85055; 87040; 87637; 96361; 96365; 99284; A9270; J2543; J7030

== ENCOUNTER 2024-07-31 00:28 | Inpatient (IN) | payer OTHER, SELFPAY ==
[2024-07-31] VITALS (22 sets, daily range): BP systolic 122–164; BP diastolic 84–114; PULSE 64–96; RESP 12–20; TEMP 36–37.2; O2SAT 89–98; BMI 33.3
--- NOTE | ~2024-07-31 | CT_ITS ---
EXAMINATION: CTA chest PE protocol DATE: 07/31/2024 01:40 INDICATION: Hemoptysis. TECHNIQUE: Computed tomography angiography (CTA) of the chest was performed with 100 mL Omnipaque-350 intravenous contrast timed to evaluate the pulmonary arteries. Coronal maximum intensity projection 3D-reconstructions were created by the technologist. Automated exposure control and iterative reconst ruction technique were employed. The dose-length product was 730.31 mGy-cm. COMPARISON: Chest CT 07/28/2024 FINDINGS: There are patchy airspace opacities and nodules in all lobes, worst in left upper lobe with air bronchograms. There is a small left pleural effusion. The heart size is normal. No pericardial e ffusion. There is no pulmonary embolus. There is mild thoracic spondylosis. IMPRESSION: 1. Widespread bilateral pneumonia, worst in left upper lobe, worsened from 07/28/2024. 2. Small left pleural effusion. 3. No pulmonary embolism. Reviewed, dictated and finalized at location A. IMPRESSION: 1. Widespread bilateral pneumonia, worst in left upper lobe, worsened from 07/28. 2. Small left pleural effusion. 3. No pulmonary embolism.
--- OUTSIDE RECORDS SUMMARY | 2024-07-31 00:30 | XMS_ITS | CONTINUITY OF CARE DOCUMENT ---
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
--- OUTSIDE RECORDS SUMMARY | 2024-07-31 00:30 | XMS_ITS | Clinical Summary ---
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
--- OUTSIDE RECORDS SUMMARY | 2024-07-31 00:30 | XMS_ITS | Clinical Summary ---
Author Organization [facility] Address [address] [place] [id number] Care Team Providers Care Navy Diver Name Role Phone Unavailable Primary Care Provider [...] Description 08/05/2024 2:00 PM CDT Office Visit [facility] Family Medicine - [place] [address] [facility] [address] [place] [address] [phone] Denisa Gipson MD [address] [place] [address] [phone] Health Maintenance Due Date Last Done Comments [...] Documents on File Type Date Recorded Patient Phone Engineer Expl anation Advance Directives and Living Will 07/21/2018 12:00 AM ADVANCED DIRECTIVES
--- OUTSIDE RECORDS SUMMARY | 2024-07-31 00:30 | XMS_ITS | Referral Summary ---
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
--- NOTE | 2024-07-31 00:40 | ED_ITS ---
HPI - SOB/Dyspnea General Chief Complaint: Shortness of Breath/Dyspnea Stated Complaint: SOB Time Seen by Provider: 07/31/24 00:35 Source: patient Mode of arrival: ambulatory Limitations: no limitations History of Present Illness HPI Narrative: patient is a 39-year-old male with a recent ER visit a few days ago for similar complaints. He is here with shortness of breath and either hemoptysis or hematemesis now associated with his illness. He has been coughing. He has had some initial vomiting and nausea with the 1st ER visit the other day but at this time his vomit has cut back a lot now. He is short of breath without chest pain. He has been taking the clindamycin for an upper lobe pneumonia. He got 1 dose of Zosyn the other day. Patient did not want a stay for hospitalization last visit. He wanted to try outpatient therapy. At this time, he is an outpatient failed oral antibiotic use for pneumonia process. He is happy to stay at this time for admission. as an aside, his urine drug screen was positive for methadone/ cocaine/ THC. fever has decreased at this point. Preliminary blood cultures were negative from recent visit. MD elicited complaint: shortness of breath and cough Pertinent past history: other ( Hypertension /not compliant) Onset (ago): day(s) ( 6) Context: recent illness Timing: constant Severity: moderate Exacerbating factors: nothing Relieving factors: other ( Antibiotics) Known history of: other ( polysubstance abuse, hypertension) Associated symptoms: cough, hemoptysis and nausea/vomiting Treatment prior to arrival: other ( Clindamycin orally for upper lobe pneumonia) Related Data Home oxygen amount: none Allergies Allergy/AdvReac Type Severity Reaction Status Date / Time No Known Allergies Allergy Verified 07/31/24 01:06 Review of Systems 2 Review of Systems: All systems reviewed & are unremarkable except as noted in HPI and below Constitutional: Constitutional: Reports no additional constitutional complaints Eyes: Eyes: Reports no additional eye complaints ENT: Reports system reviewed and no additional complaints, except as documented Cardiovascular: Cardiovascular: Reports no additional cardiovascular complaints Respiratory: Respiratory: Reports no additional respiratory complaints Gastrointestinal: Gastrointestinal: Reports no additional gastrointestinal complaints Genitourinary: Genitourinary: Reports no additional male genitourinary complaints Musculoskeletal: Musculoskeletal: Reports no additional musculoskeletal complaints Integumentary/Breasts: Skin/Breast: Reports system reviewed and no additional complaints, except as docu Neurologic: Reports system reviewed and no additional complaints, except as documented Psychiatric: Psychiatric: Reports no additional psychiatric complaints Endocrine: Endocrine: Reports no additional endocrine complaints Hematologic/Lymphatic: Hematologic/Lymphatic: Reports no additional hematologic/lymphatic complaints Allergic/Immunologic: Allergic/Immunologic: Reports no additional allergic/immunologic complaints [facility] Past Medical History Medical History Cellulitis of knee, left Family History Family History Mother Patient's mother is in good health Father Patient's father is in good health Sibling Patient's sister is in good health Patient's brother is in good health Other Family history of elevated blood lipids Hypertension Social History Social History Smoking packs per day: 1 Smoking cigarettes per day: 20.0 Smoking status: Current every day smoker Tobacco type: cigarettes Second hand tobacco smoke exposure: Yes Alcohol intake: never Exam 2 Const: General: ill appearing Nutritional Appearance: well nourished O rientation/consciousness: patient oriented x3 Limitations: no limitations HENMT: Head: normal to inspection Ears: external ears normal F pamela/Nose/Sinus: Normal external nose present Eyes: Conjunctivae: conjunctivae normal Pupils: Equal, round and reactive pupils present EOM: EOMs intact bilaterally Direct Ophthalmoscopy: no photophobia Neck: Neck: normal visual inspection Chest: Chest palpation & inspection: normal inspection of the chest Resp: Effort & Inspection: normal respiratory effort, not labored, no retractions, not tachypneic and no use of accessory muscles Auscultation: not clear to auscultation bilaterally, crackles, no rales, rhonchi, no wheezes, breath sounds present and diminished lung sounds Cardio: Rate: regular rate Rhythm: regular rhythm Heart sounds: no murmurs GI: Inspection: non-distended GI Palp: Yes Soft to palpation and No Tenderness to palpation present (GI) Auscultation: normal bowel sounds : General: Yes bladder normal to palpation Skin: General skin exam: normal color Rashes: no rashes Wounds: no wounds Neuro: General: patient oriented x3 Cranial nerves: Yes Nystagmus not present Speech: normal speech Gait exam (Neuro): Normal gait present Extrem: General: normal to inspection Psych: Mental Status: mental status grossly normal Affect: normal affect Attitude: cooperative Course Vital Signs Vital signs: Vital Signs Temperature 36.4 C L 07/31/24 00:32 Pulse Rate 93 07/31/24 00:32 Respiratory Rate 18 07/31/24 00:32 Blood Pressure 164/114 H 07/31/24 00:32 Pulse Oximetry 90 07/31/24 00:32 Oxygen Delivery Room Air 07/31/24 00:32 Temperature 36.4 C L 07/31/24 00:32 Pulse Rate 85 07/31/24 02:31 Respiratory Rate 16 07/31/24 02:31 Blood Pressure 139/91 H 07/31/24 02:16 Pulse Oximetry 89 L 07/31/24 02:42 Oxygen Delivery Nasal Cannula 07/31/24 02:42 Oxygen Flow Rate 4 07/31/24 02:42 MDM - SOB/Dyspnea MDM Narrative Medical decision making narrative: patient is a 39-year-old male with failed outpatient oral antibiotics for a left upper lobe pneumonia. He is back feeling not better at this time and had some hemoptysis versus hematemesis. Will do a sepsis workup to include a CTA PE of the chest. May need upper scope with the vomiting of blood in the near future. No active vomiting of blood at this time. Lab Data Attestation: I reviewed the patient's lab results. 07/31/24 00:59 07/31/24 00:59 Labs: Lab Results 07/31/24 Range/Units 00:59 WBC 13.9 H (4.8-10.8) K/mm3 RBC 5.29 (4.70-6.10) M/mm3 Hgb 15.3 (14.0-18.0) g/dL Hct 46.8 (40.0-54.0) % MCV 88.5 (78.0-102.0) fL MCH 28.9 (27.0-31.0) pg MCHC 32.7 (32-36) g/dL RDW 14.1 (11.6-14.4) % Plt Count 187 (150-420) K/mm3 MPV 11.0 (8.7-11.0) fl Immature Gran % (Auto) 1.1 H (0.0-0.0) % Neut % (Auto) 87.8 H (50.0-70.0) % Lymph % (Auto) 6.1 L (18.0-42.0) % Fallon % (Auto) 4.5 (2.0-11.0) % Eos % (Auto) 0.1 L (1.0-6.0) % Baso % (Auto) 0.4 (0.0-1.0) % Lymph # (Auto) 0.84 L (1.10-4.50) K/mm3 Fallon # (Auto) 0.63 (0.10-0.90) K/mm3 Eos # (Auto) 0.01 L (0.02-0.50) K/mm3 Baso # (Auto) 0.05 (0.00-0.10) K/mm3 Abs Immat Gran (auto) 0.15 H (0.00-0.00) K/mm3 Absolute Neuts (auto) 12.18 H (1.70-7.20) K/mm3 Absolute Nucleated RBC 0.00 (0.00-0.00) K/mm3 Nucleated RBC % 0.0 (0-0.0) % PT 13.3 H (9.50-12.1) Seconds INR 1.2 APTT 28.7 (23.9-30.70) Sec Sodium 128 L (136-145) mmol/L Potassium 3.6 (3.5-5.1) mmol/L Chloride 91 L (98-108) mmol/L Carbon Dioxide 33 H (21-32) mmol/L Anion Gap 4 (4-12) mmol/L BUN 11 (7-18) mg/dL Creatinine 0.73 (0.70-1.30) mg/dL Estim Creat Clear Calc 152 ml/min Estimated GFR > 60 (59 - ) Glucose 64 L (70-99) mg/dL Calculated Osmolality 263 L (285-295) mOsm/kg Lactic Acid 1.6 (0.4-2.0) mmol/L Calcium 8.9 (8.5-10.1) mg/dL Total Bilirubin 0.8 (0.00-1.00) mg/dL AST 56 H (15-37) U/L ALT 43 (16-63) U/L Alkaline Phosphatase 90 (46-116) U/L C-Reactive Protein 22.3 H (0.0-0.9) mg/dL Total Protein 7.3 (6.4-8.2) g/dL Albumin 2.1 L (3.4-5.0) g/dL Influenza A (RT-PCR) Negative (Negative) Influenza B (RT-PCR) Negative (Negative) RSV (RT-PCR) Negative (Negative) SARS-CoV-2 RNA (RT-PCR) Negative (Negative) Imaging Data Attestation: I personally reviewed and interpreted this imaging study as follows: Radiologist's impression: CTA for PE of the chest shows no PE but left upper lobe consolidation present Discharge Plan Discharge Clinical Impression: Hypoxia, Electrolyte imbalance, Elevated blood pressure reading with diagnosis of hypertension Pneumonia Qualifiers: Pneumonia type: due to unspecified organism Laterality: unspecified laterality Lung location: unspecified part of lung Qualified Code(s): J18.9 - Pneumonia, unspecified organism Patient Disposition: Acute [facility] Condition: Stable Patient Language: Arabic Prescriptions: No Action losartan-hydrochlorothiazide [Hyzaar] 50-12.5 mg tablet 1 tablet PO DAILY Qty: 30 0RF clindamycin HCl 300 mg capsule 300 mg PO TID 10 Days Qty: 30 0RF ondansetron 4 mg tablet,disintegrating 4 mg PO Q6H PRN (Reason: nausea and vomiting) Qty: 20 0RF Follow-up/Referrals: Brandan,Denisa Prieto MD [Primary Care Provider] - Time of Disposition: 03:01
[2024-07-31 01:05] LABS: Basophils Absolute Auto 0.05 K/mm3 (0.00-0.10); Basophils Percent Auto 0.4 % (0.0-1.0); Eosinophils Absolute Auto 0.01 K/mm3 (0.02-0.50); Eosinophils Percent Auto 0.1 % (1.0-6.0); Hematocrit 46.8 % (40.0-54.0); Hemoglobin 15.3 g/dL (14.0-18.0); Immature Granulocyte Absolute 0.15 K/mm3 (0.00-0.00); Immature Granulocyte Percent A 1.1 % (0.0-0.0); Lymphocytes Absolute Auto 0.84 K/mm3 (1.10-4.50); Lymphocytes Percent Auto 6.1 % (18.0-42.0); Mean Corpuscular HGB Conc 32.7 g/dL (32-36); Mean Corpuscular Hemoglobin 28.9 pg (27.0-31.0); Mean Corpuscular Volume 88.5 fL (78.0-102.0); Monocytes Absolute Auto 0.63 K/mm3 (0.10-0.90); Monocytes Percent Auto 4.5 % (2.0-11.0); Neutrophils Absolute Auto 12.18 K/mm3 (1.70-7.20); Neutrophils Percent Auto 87.8 % (50.0-70.0); Platelet Count Result 187 K/mm3 (150-420); Red Blood Count 5.29 M/mm3 (4.70-6.10); Red Cell Distribution Width 14.1 % (11.6-14.4); White Blood Count 13.9 K/mm3 (4.8-10.8)
--- OUTSIDE RECORDS SUMMARY | 2024-07-31 01:06 | XMS_ITS | CONTINUITY OF CARE DOCUMENT ---
Author Name daniel sanchez Address Unknown Organization [facility] Address [address] [place] [address] Phone [phone] Care Team Providers Care Relationship Banker Name Role Phone Gautam COYLE, Suri Unavailable [place] TOOL SETTER-BC, Maggie Gibson Unavailable PROBLEMS Condition Status Date [...] In-person encounter Office Visit Suri Florez MD [facility] SOCIAL HISTORY Date Observation Value Provider social history reviewed E&M reviewed - no changes required Trell Painting INSURANCE PROVIDERS Payer name Policy type / Coverage type Ángel red green party ID [id number] MEDICAID (2) Medicaid [id number] TREATMENT PLAN Date Name Performer [id number],S, Trell Waller i [id number],S, Trell Waller i [id number],S, Trell Waller i [id number],S, Trell Ahmedza i [id number],S, Trell Ahmedza i [id number],S, Trell Lairdmedza i Cardiology NO SHOW Trell Ahmedzai Cardiology NO SHOW Trell Ahmedzai Cardiology NO SHOW Trell Ahmedzai Cardiology NO SHOW Trell Ahmedzai Cardiology NO SHOW Trell Ahmedzai Cardiology NO SHOW Trell Ahmedzai
--- OUTSIDE RECORDS SUMMARY | 2024-07-31 01:06 | XMS_ITS | Clinical Summary ---
Author Organization [facility] Address [address] [place] [id number] Care Team Providers Care Television News Photographer Name Role Phone Unavailable Primary Care Provider [...] Description 08/05/2024 2:00 PM CDT Office Visit [facility] Family Medicine - [place] [address] [place] [address] [phone] Denisa Gipson MD [address] [place] [address] [phone] Health Maintenance Due Date Last Done Comments [...] Documents on File Type Date Recorded Patient Software Educator Expl anation Advance Directives and Living Will 07/21/2018 12:00 AM ADVANCED DIRECTIVES
--- OUTSIDE RECORDS SUMMARY | 2024-07-31 01:06 | XMS_ITS | Clinical Summary ---
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
--- OUTSIDE RECORDS SUMMARY | 2024-07-31 01:06 | XMS_ITS | Referral Summary ---
Author Organization [facility] Address [address] [place] [address] Care Team Providers Care Cigarette Tipper Name Role Phone Prieto Ramirez MD Primary Care Provider Encounters Date Type Department Care Team Description 06/15/2024 Telephone [facility] Primary Care at [address] [address] Prieto Ramirez MD from Last [...] establish care has been performed today. Julio iWllingham is up to date on screening tests. 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
[2024-07-31 01:16] LABS: INR 1.2; Partial Thromboplastin Time 28.7 Sec (23.9-30.70); Prothrombin Time 13.3 Seconds (9.50-12.1)
[2024-07-31 01:17] LABS: Alanine Aminotransferase 43 U/L (16-63); Albumin Level 2.1 g/dL (3.4-5.0); Alkaline Phosphatase 90 U/L (46-116); Anion Gap 4 mmol/L (4-12); Aspartate Amino Transferase 56 U/L (15-37); Bilirubin,Total 0.8 mg/dL (0.00-1.00); Blood Urea Nitrogen 11 mg/dL (7-18); Calcium 8.9 mg/dL (8.5-10.1); Carbon Dioxide 33 mmol/L (21-32); Chloride 91 mmol/L (98-108); Estimated CRCL calculation 152 ml/min; Estimated Glomerular Filt Rate > 60; Glucose 64 mg/dL (70-99); Osmolality Calculated 263 mOsm/kg (285-295); Potassium 3.6 mmol/L (3.5-5.1); Sodium 128 mmol/L (136-145); Total Protein 7.3 g/dL (6.4-8.2)
[2024-07-31 01:18] LABS: CRP 22.3 mg/dL (0.0-0.9)
[2024-07-31 01:22] LABS: Lactic Acid Reflex 1.6 mmol/L (0.4-2.0)
[2024-07-31] MEDS: PIPERACILLN/TAZ 3.375GM/NS50ML 3.375 GM/50 ML BAG IVPB ×2 (01:39→08:22)
[2024-07-31] MEDS: methylPREDNISolone SOD SUCC 125 MG VIAL IV PUSH (01:39)
[2024-07-31] MEDS: IPRATROPIUM 0.5 MG/ALBUTEROL SULFATE 2.5 MG AMPUL.NEB 3 ML INHALATION ×4 (01:39→18:31)
[2024-07-31] MEDS: SODIUM CHLORIDE 0.9% IV 1,000 ML 999 ML IV CONT (01:39)
[2024-07-31 01:41] LABS: Influenza A QL RT-PCR Negative (Negative); Influenza B QL RT-PCR Negative (Negative); RSV RNA, RT-PCR Negative (Negative); SARS-CoV-2 RNA PCR Negative (Negative)
--- NOTE | 2024-07-31 02:45 | PC.NURSE ---
ERP aware of pt's vitals. No new orders at this time.
[2024-07-31] MEDS: SODIUM CHLORIDE 0.9% IV 1,000 ML 100 ML IV CONT ×2 (04:36→14:36)
--- NOTE | 2024-07-31 05:19 | ADMGEN ---
This patient, Julio Willingham, was admitted to 2nd Floor Room 203-1. Patient oriented to hospital policies and general routines including ID bracelet, bed and alarms, visiting hours, pain management, procedures, bathroom and other care routines, personal items, smoking policy, room service/diet, and visiting hours. Discussed plan of care and need for IV antibiotics and oxygen. Patient agrees to plan. Information on how to activate the Rapid Response Team has been discussed. Patient/Family are encouraged to report perceived risks to care and to ask questions if they do not understand what they are told or what they should do.
[2024-07-31 05:24] LABS: Basophils Absolute Auto 0.03 K/mm3 (0.00-0.10); Basophils Percent Auto 0.2 % (0.0-1.0); Hematocrit 45.9 % (40.0-54.0); Immature Granulocyte Absolute 0.14 K/mm3 (0.00-0.00); Immature Granulocyte Percent A 1.1 % (0.0-0.0); Lymphocytes Absolute Auto 0.64 K/mm3 (1.10-4.50); Mean Corpuscular HGB Conc 32.7 g/dL (32-36); Mean Corpuscular Hemoglobin 29.4 pg (27.0-31.0); Mean Corpuscular Volume 89.8 fL (78.0-102.0); Mean Platelet Volume 10.9 fl (8.7-11.0); Monocytes Absolute Auto 0.29 K/mm3 (0.10-0.90); Monocytes Percent Auto 2.2 % (2.0-11.0); Neutrophils Absolute Auto 11.82 K/mm3 (1.70-7.20); Neutrophils Percent Auto 91.5 % (50.0-70.0); Platelet Count Result 174 K/mm3 (150-420); Red Blood Count 5.11 M/mm3 (4.70-6.10); Red Cell Distribution Width 14.2 % (11.6-14.4); White Blood Count 12.9 K/mm3 (4.8-10.8)
[2024-07-31 05:40] LABS: Alanine Aminotransferase 52 U/L (16-63); Alkaline Phosphatase 83 U/L (46-116); Anion Gap 4 mmol/L (4-12); Aspartate Amino Transferase 61 U/L (15-37); Bilirubin,Total 0.8 mg/dL (0.00-1.00); Blood Urea Nitrogen 11 mg/dL (7-18); Calcium 8.4 mg/dL (8.5-10.1); Carbon Dioxide 34 mmol/L (21-32); Chloride 94 mmol/L (98-108); Estimated CRCL calculation 146 ml/min; Estimated Glomerular Filt Rate > 60; Glucose 78 mg/dL (70-99); Osmolality Calculated 272 mOsm/kg (285-295); Potassium 3.5 mmol/L (3.5-5.1); Sodium 132 mmol/L (136-145); Total Protein 6.3 g/dL (6.4-8.2)
[2024-07-31] MEDS: ENOXAPARIN 40 MG/0.4 ML SYRINGE SUB-Q (08:59)
[2024-07-31] MEDS: methylPREDNISolone SOD SUCC 40 MG VIAL IV PUSH ×2 (08:59→18:30)
[2024-07-31] MEDS: guaiFENesin 12 HR 600 MG TABCR 1200 MG PO ×2 (08:59→20:28)
[2024-07-31] MEDS: LOSARTAN POTASSIUM 50 MG TABLET 100 MG PO (08:59)
[2024-07-31] MEDS: AZITHROMYCIN 250 MG TABLET 500 MG PO (08:59)
[2024-07-31] MEDS: PANTOPRAZOLE 40 MG TABLET PO (08:59)
[2024-07-31 09:01] LABS: Magnesium 1.8 mg/dL (1.8-2.4)
[2024-07-31] MEDS: KETOROLAC 30 MG/ML VIAL (*BKC) IV PUSH (09:07)
--- NOTE | 2024-07-31 09:25 | PHAR ---
Patient is using home med of Methadone 200mg. Med reviewed with RN and Provider.
[2024-07-31 09:28] LABS: Glucose Point of Care 172 mg/dl (65-105)
--- NOTE | 2024-07-31 10:36 | P.HP_ITS ---
H&P: HPI History of Present Illness Date/Time: 07/31/24 10:36 Chief Complaint: SOB/Weakness Narrative: Patient is a 39-year-old male who presented to the emergency department with worsening complaints of shortness a breath with hemoptysis. patient had recently been seen in the emergency department with same symptoms however requested to return home and try to treat symptoms at home found to have pneumonia but once he started developing nausea and vomiting with hemoptysis was not improving he returned to the emergency department. Initially patient had been discharged on oral clindamycin and Zofran. On the previous admission patient a UDS completed which was positive for methadone, cocaine, and THC. patient reports a past medical history of hypertension substance abuse. initial findings in the emergency department patient was found to have acute respiratory failure with hypoxia with oxygen saturations in the mid 80s a chest CT was performed which was negative for PE but showed significant worsening bilateral pneumonia. patient with leukocytosis of 13.9 and C-reactive 22. patient tested negative for COVID/ RSV / influenza he was then admitted to the medical unit for further evaluation and treatment of acute respiratory failure with hypoxia secondary to pneumonia. upon evaluation patient denied any chest pain still requiring supplemental oxygen to maintain 92% but did report mild improvement no further nausea or vomiting overnight however patient with diaphoresis, feverish and chills. Review of Systems Review of Systems: All systems reviewed & are unremarkable except as noted in HPI and below PMFSH Past Medical History Medical History (Updated 07/31/24 @ 10:43 by Keyana Smart APRN) Smoker Substance abuse Hyperglycemia Essential hypertension Cellulitis of knee, left Family History Family History Mother Patient's mother is in good health Father Patient's father is in good health Sibling Patient's brother is in good health Patient's sister is in good health Schizophrenia Sibling Schizophrenia Other Family history of elevated blood lipids Hypertension Social History Social History Smoking packs per day: 1 Smoking cigarettes per day: 20.0 Years smoked: 25 Smoking pack-years: 25.00 Smoking status: Heavy tobacco smoker Tobacco type: cigarettes Second hand tobacco smoke exposure: No Alcohol intake: never Substance use: former Substance use type: heroin Last use: 2021 Do You Feel Safe in your Home?: Yes Lack of Transportation: No Lack of Food: Never True Current Housing: I Have Housing Concerned About Future Housing: No Difficulty Paying Gas/Electric Bills: No Difficulty Paying for Meds: No Currently Unemployed: No Education: High School Diploma/GED Difficulty w/ Childcare or Family Care: No Spiritual care concerns: No Meds Home Medications and Allergies Home Medications ?Medication ?Instructions ?Recorded ?Confirmed ?Type losartan 50 mg-hydrochlorothiazide 1 tablet PO DAILY #30 tabs 04/08/24 07/31/24 Rx 12.5 mg tablet (Hyzaar) clindamycin HCl 300 mg capsule 300 mg PO TID 10 days #30 caps 07/28/24 07/31/24 Rx ondansetron 4 mg disintegrating 4 mg PO Q6H PRN nausea and 07/28/24 07/31/24 Rx tablet vomiting #20 tabs Allergies Allergy/AdvReac Type Severity Reaction Status Date / Time No Known Allergies Allergy Verified 07/31/24 01:06 Vital Signs Vital Signs - 24 hr 07/31/24 00:32 07/31/24 01:00 07/31/24 01:00 Temperature 97.5 F L Pulse Rate 93 94 Respiratory Rate 18 15 Blood Pressure 164/114 H Pulse Oximetry 90 91 92 Oxygen Delivery Room Air Nasal Cannula Oxygen Flow Rate 2 07/31/24 01:15 07/31/24 01:17 07/31/24 01:18 Temperature Pulse Rate 91 92 90 Respiratory Rate 19 12 12 Blood Pressure 151/103 H 151/103 H Pulse Oximetry 93 93 Oxygen Delivery Nasal Cannula Oxygen Flow Rate 1 07/31/24 01:37 07/31/24 01:38 07/31/24 01:45 Temperature Pulse Rate 96 90 Respiratory Rate 14 Blood Pressure 151/105 H Pulse Oximetry 94 94 95 Oxygen Delivery Nasal Cannula Nasal Cannula Nasal Cannula Oxygen Flow Rate 2 2 3 07/31/24 01:45 07/31/24 01:46 07/31/24 02:00 Temperature Pulse Rate 87 86 93 Respiratory Rate 15 13 13 Blood Pressure 126/84 Pulse Oximetry 95 93 91 Oxygen Delivery Nasal Cannula Nasal Cannula Nasal Cannula Oxygen Flow Rate 3 3 3 07/31/24 02:16 07/31/24 02:31 07/31/24 02:42 Temperature Pulse Rate 80 85 Respiratory Rate 20 16 Blood Pressure 139/91 H Pulse Oximetry 89 L Oxygen Delivery Nasal Cannula Oxygen Flow Rate 4 07/31/24 03:04 07/31/24 03:24 07/31/24 03:45 Temperature Pulse Rate 83 85 Respiratory Rate 20 Blood Pressure Pulse Oximetry 94 Oxygen Delivery Nasal Cannula Nasal Cannula Oxygen Flow Rate 4 4 07/31/24 03:45 07/31/24 04:59 Temperature 98.9 F 96.8 F L Pulse Rate 83 83 Respiratory Rate 20 20 Blood Pressure 143/98 H 139/96 H Pulse Oximetry 94 89 L Oxygen Delivery Nasal Cannula Nasal Cannula Oxygen Flow Rate 4 4 Exam Const: General: no acute distress Other: patient lethargic, diaphoretic warm to touch pleasant male HENMT: Mouth: Yes dry mucous membranes Eyes: General: appearance normal, both eyes and all related structures Pupils: Equal, round and reactive pupils present Neck: Neck: supple and no JVD Resp: Effort & Inspection: normal respiratory effort Auscultation: diminished lung sounds bilateral throughout Cardio: Rate: regular rate Rhythm: regular rhythm GI: GI Palp: Yes Soft to palpation and Yes Tenderness to palpation present (GI) (From vomiting) Auscultation: normal bowel sounds Skin: General skin exam: normal color and no rashes or lesions noted Wounds: no wounds Neuro: General: gait normal Speech: normal speech Motor exam (neuro): 5/5 motor strength present throughout Sensory Exam: normal sensation Psych: Mental Status: mental status grossly normal Other: Lethargic H&P: Results Labs Labs: Short CBC 07/31/24 07/31/24 Range/Units 00:59 05:11 WBC 13.9 H 12.9 H (4.8-10.8) K/mm3 Hgb 15.3 15.0 (14.0-18.0) g/dL Hct 46.8 45.9 (40.0-54.0) % Plt Count 187 174 (150-420) K/mm3 [facility] 07/31/24 07/31/24 00:59 05:11 Sodium 128 L 132 L Potassium 3.6 3.5 Chloride 91 L 94 L Carbon Dioxide 33 H 34 H BUN 11 11 Creatinine 0.73 0.77 Glucose 64 L 78 Calcium 8.9 8.4 L Liver Function 07/31/24 07/31/24 Range/Units 00:59 05:11 Total Bilirubin 0.8 0.8 (0.00-1.00) mg/dL AST 56 H 61 H (15-37) U/L ALT 43 52 (16-63) U/L Alkaline Phosphatase 90 83 (46-116) U/L Albumin 2.1 L 2.0 L (3.4-5.0) g/dL Imaging CT scan - chest: Radiologist's impression: EXAMINATION: CTA chest PE protocol DATE: 07/31/2024 01:40 INDICATION: Hemoptysis. TECHNIQUE: Computed tomography angiography (CTA) of the chest was performed with 100 mL Omnipaque-350 intravenous contrast timed to evaluate the pulmonary arteries. Coronal maximum intensity projection 3D-reconstructions were created by the technologist. Automated exposure control and iterative reconstruction technique were employed. The dose-length product was 730.31 mGy-cm. COMPARISON: Chest CT 07/28/2024 FINDINGS: There are patchy airspace opacities and nodules in all lobes, worst in left upper lobe with air bronchograms. There is a small left pleural effusion. The heart size is normal. No pericardial effusion. There is no pulmonary embolus. There is mild thoracic spondylosis. IMPRESSION: 1. Widespread bilateral pneumonia, worst in left upper lobe, worsened from 07/28/2024. 2. Small left pleural effusion. 3. No pulmonary embolism. Assessment and Plan Assessment and plan (1) Acute respiratory failure with hypoxia: Code(s): J96.01 - Acute respiratory failure with hypoxia Status: Acute Assessment and Plan: * Secondary to PNA * Bronchodilators. * CT No PE bilateral pneumonia * incentive spirometry while awake. * influenza/COVID/RSV negative * azithromycin/ ceftriaxone * guaifenesin * no vancomycin MRSA negative * supplemental oxygen therapy to maintain oxygen 92% wean as tolerated * Smoking cessation counseling done (2) Pneumonia: Qualifiers: Laterality: unspecified laterality Lung location: unspecified part of lung Pneumonia type: due to unspecified organism Qualified Code(s): J18.9 - Pneumonia, unspecified organism Code(s): J18.9 - Pneumonia, unspecified organism Status: Acute Assessment and Plan: * SEE ABOVE #1 (3) Substance abuse: Code(s): F19.10 - Other psychoactive substance abuse, uncomplicated Status: Acute Assessment and Plan: Patient UDS positive for methadone, cocaine, THC. patient states he has been going to a methadone clinic for about 2 months * will resume patient's oral methadone * monitor for signs of withdrawal * encouraged immediate cessation (4) Hyperglycemia: Code(s): R73.9 - Hyperglycemia, unspecified Status: Acute Assessment and Plan: * BS 172 POA could be secondary to steroids given * A1c pending (5) Smoker: Code(s): F17.200 - Nicotine dependence, unspecified, uncomplicated Status: Acute Assessment and Plan: * encouraged smoking cessation * nicotine patch p.r.n. (6) Essential hypertension: Code(s): I10 - Essential (primary) hypertension Status: Acute Assessment and Plan: patient with history of hypertension but reports he has not been taking his BP medication due to change in insurance and no primary * BP 164/114 POA * started patient on losartan 100 mg daily * BP per unit protocol Plan Code status: Full code per patient DVT prophylaxis: Lovenox Stress ulcer prophylaxis: Protonix 40 daily PT/OT notes: Ambulatory Disposition: patient was admitted for further treatment of acute respiratory failure with hypoxia secondary to pneumonia will continue with current treatment plan and wean oxygen as tolerated patient is ambulatory will discharge to home when medically stable. Quality VTE Prophylaxis VTE prophylaxis: mechanical ordered and pharmacologic ordered -Patient's previous records reviewed on admission -ER notes reviewed in detail on admission -discussed all findings and current treatment plan with patient/Family/POA -Consultations reviewed for recommendations -Patient's disposition for safe discharge discussed with case manager specialist Dictation performed by [employer] direct speech recognition software, therefore senior software development engineer variants and typographical errors may occur. Hospitalist MIPS Advance Care Plan I have confirmed that the patient's Advanced Care Plan is present, code status is documented, or surrogate decision maker is listed in patient medical record.: Yes Medication Reconciliation I have utilized all available resources to obtain, update and review the patients current medications (includes all prescriptions, OTC, herbals, cannabis, and nutritional supplements).: Yes The patient is not eligible for med reconciliation; the patient is in a emergent medical situation where delaying treatment would jeopardize the patients health.: No
[2024-07-31 10:57] LABS: Hemoglobin A1C 5.2 % (<5.7)
[2024-07-31] MEDS: traZODone HCL 50 MG TABLET PO (20:28)
[2024-08-01] VITALS (9 sets, daily range): BP systolic 120–155; BP diastolic 89–113; PULSE 88–97; RESP 16–18; TEMP 36.4–36.9; O2SAT 93–97
[2024-08-01] MEDS: methylPREDNISolone SOD SUCC 40 MG VIAL IV PUSH ×2 (01:07→09:41)
[2024-08-01] MEDS: IPRATROPIUM 0.5 MG/ALBUTEROL SULFATE 2.5 MG AMPUL.NEB 3 ML INHALATION ×3 (01:07→13:17)
[2024-08-01] MEDS: SODIUM CHLORIDE 0.9% IV 1,000 ML 100 ML IV CONT (03:13)
[2024-08-01 06:43] LABS: Basophils Absolute Auto 0.12 K/mm3 (0.00-0.10); Basophils Percent Auto 0.7 % (0.0-1.0); Eosinophils Absolute Auto 0.01 K/mm3 (0.02-0.50); Eosinophils Percent Auto 0.1 % (1.0-6.0); Hemoglobin 14.4 g/dL (14.0-18.0); Immature Granulocyte Absolute 0.38 K/mm3 (0.00-0.00); Immature Granulocyte Percent A 2.1 % (0.0-0.0); Lymphocytes Absolute Auto 0.81 K/mm3 (1.10-4.50); Lymphocytes Percent Auto 4.5 % (18.0-42.0); Mean Corpuscular HGB Conc 31.3 g/dL (32-36); Mean Corpuscular Hemoglobin 29.3 pg (27.0-31.0); Mean Corpuscular Volume 93.5 fL (78.0-102.0); Mean Platelet Volume 11.6 fl (8.7-11.0); Monocytes Absolute Auto 0.65 K/mm3 (0.10-0.90); Monocytes Percent Auto 3.6 % (2.0-11.0); Neutrophils Absolute Auto 16.16 K/mm3 (1.70-7.20); Platelet Count Result 200 K/mm3 (150-420); Red Blood Count 4.92 M/mm3 (4.70-6.10); Red Cell Distribution Width 14.7 % (11.6-14.4); White Blood Count 18.1 K/mm3 (4.8-10.8)
[2024-08-01 07:12] LABS: Alanine Aminotransferase 45 U/L (16-63); Albumin Level 2.1 g/dL (3.4-5.0); Alkaline Phosphatase 81 U/L (46-116); Anion Gap 9 mmol/L (4-12); Aspartate Amino Transferase 55 U/L (15-37); Bilirubin,Total 0.5 mg/dL (0.00-1.00); Blood Urea Nitrogen 17 mg/dL (7-18); Carbon Dioxide 29 mmol/L (21-32); Chloride 98 mmol/L (98-108); Estimated CRCL calculation 144 ml/min; Estimated Glomerular Filt Rate > 60; Potassium 3.4 mmol/L (3.5-5.1); Sodium 136 mmol/L (136-145)
[2024-08-01 08:17] LABS: Calcium 8.8 mg/dL (8.5-10.1); Glucose 127 mg/dL (70-99); Osmolality Calculated 285 mOsm/kg (285-295)
--- NOTE | 2024-08-01 08:17 | PC.NURSE ---
Informed INTELLIGENCE OFFICER BASIC Calcium less than 5 and lab rerunning at this time. BP 155/113 HR 95 and will take after meds given, PT now on RA with sats at 93%.
--- NOTE | 2024-08-01 08:23 | PC.NURSE ---
Calcium after reevaluation of test 8.8. ALARM MECHANISM ADJUSTER informs she will see how he is doing when she gets here.
[2024-08-01] MEDS: LOSARTAN POTASSIUM 50 MG TABLET 100 MG PO (09:42)
[2024-08-01] MEDS: PANTOPRAZOLE 40 MG TABLET PO (09:42)
[2024-08-01] MEDS: ENOXAPARIN 40 MG/0.4 ML SYRINGE SUB-Q (09:42)
[2024-08-01] MEDS: guaiFENesin 12 HR 600 MG TABCR 1200 MG PO (09:42)
[2024-08-01] MEDS: AZITHROMYCIN 250 MG TABLET 500 MG PO (09:42)
--- NOTE | 2024-08-01 13:55 | P.DS_ITS ---
DS: Admitting Diagnosis Discharge Date 08/01/2024 Admitting Diagnosis Pneumonia DS: Discharge Diagnosis Discharge Diagnosis (1) Acute respiratory failure with hypoxia: Code(s): J96.01 - Acute respiratory failure with hypoxia Status: Acute Assessment and Plan: * Secondary to PNA * Bronchodilators. * CT No PE bilateral pneumonia * incentive spirometry while awake. * influenza/COVID/RSV negative * azithromycin/ ceftriaxone * guaifenesin * no vancomycin MRSA negative * supplemental oxygen therapy to maintain oxygen 92% wean as tolerated * Smoking cessation counseling done (2) Pneumonia: Qualifiers: Laterality: unspecified laterality Lung location: unspecified part of lung Pneumonia type: due to unspecified organism Qualified Code(s): J18.9 - Pneumonia, unspecified organism Code(s): J18.9 - Pneumonia, unspecified organism Status: Acute Assessment and Plan: * SEE ABOVE #1 (3) Substance abuse: Code(s): F19.10 - Other psychoactive substance abuse, uncomplicated Status: Acute Assessment and Plan: Patient UDS positive for methadone, cocaine, THC. patient states he has been going to a methadone clinic for about 2 months * will resume patient's oral methadone * monitor for signs of withdrawal * encouraged immediate cessation (4) Hyperglycemia: Code(s): R73.9 - Hyperglycemia, unspecified Status: Acute Assessment and Plan: * BS 172 POA could be secondary to steroids given * A1c pending (5) Smoker: Code(s): F17.200 - Nicotine dependence, unspecified, uncomplicated Status: Acute Assessment and Plan: * encouraged smoking cessation * nicotine patch p.r.n. (6) Essential hypertension: Code(s): I10 - Essential (primary) hypertension Status: Acute Assessment and Plan: patient with history of hypertension but reports he has not been taking his BP medication due to change in insurance and no primary * BP 164/114 POA * started patient on losartan 100 mg daily * BP per unit protocol Plan disposition: discharged home DS: Summary Hospital Course Reason for hospitalization: pneumonia Hospital Course: Patient is a 39-year-old male who presented to the emergency department with worsening complaints of shortness a breath with hemoptysis. patient had recently been seen in the emergency department with same symptoms however requested to return home and try to treat symptoms at home found to have pneumonia but once he started developing nausea and vomiting with hemoptysis was not improving he returned to the emergency department. Initially patient had been discharged on oral clindamycin and Zofran. On the previous admission patient a UDS completed which was positive for methadone, cocaine, and THC. patient reports a past medical history of hypertension substance abuse. initial findings in the emergency department patient was found to have acute respiratory failure with hypoxia with oxygen saturations in the mid 80s a chest CT was performed which was negative for PE but showed significant worsening bilateral pneumonia. patient with leukocytosis of 13.9 and C-reactive 22. patient tested negative for COVID/ RSV / influenza he was then admitted to the medical unit for further evaluation and treatment of acute respiratory failure with hypoxia secondary to pneumonia. upon evaluation patient denied any chest pain still requiring supplemental oxygen to maintain 92% but did report mild improvement no further nausea or vomiting overnight however patient with diaphoresis, feverish and chills. Patient had overall improvement to symptoms after Treatment with IV Rocephin and azithromycin continued with Duo nebulizers, guaifenesin in steroids. Was able to wean patient off oxygen and he was able to maintain 92% off supplemental oxygen. patient was then seen and assessed day of discharge reported no further shortness of breath denied any chest pain any further nausea vomiting was tolerating all oral intake without nausea or vomiting. Patient has that time was requesting to be discharged. Patient was then discharged with prescription of oral antibiotic therapy to include azithromycin and Augmentin as well as prescribed him nebulizer treatments which time he reported he had a nebulizer machine at home in. Patient was instructed that if symptoms returned and he developed worsening shortness of breath to return for any medical treatment. Patient instructed to continue his methadone treatment. Patient was educated and encouraged on immediate illegal substance cessation due to interaction with methadone. Patient was discharged home with spouse both acknow ledged and agreed with discharge plan and patient was discharged home. Status at Discharge Functional status at discharge: independent ambulation Overall status at discharge: patient is back to baseline Time Spent with Patient Time attestation: Total time spent providing and/or coordinating discharge services: Time spent: Greater than 30 minutes Exam Const: General: comfortable and no acute distress Other: alert and oriented x4 HENMT: Mouth: Yes dry mucous membranes Eyes: General: appearance normal, both eyes and all related structures Pupils: Equal, round and reactive pupils present Neck: Neck: supple and no JVD Resp: Effort & Inspection: normal respiratory effort Auscultation: diminished lung sounds bilateral throughout Cardio: Rate: regular rate Rhythm: regular rhythm GI: Auscultation: normal bowel sounds Skin: General skin exam: normal color and no rashes or lesions noted Wounds: no wounds Neuro: General: gait normal Cranial nerves: Yes Equal, round and reactive pupils present Speech: normal speech Motor exam (neuro): 5/5 motor strength present throughout Sensory Exam: normal sensation Psych: Mental Status: mental status grossly normal Affect: normal affect DS: Data Data Completed and Pending Labs on day of discharge: Labs from last 24 hours 08/01/24 06:24 WBC 18.1 H RBC 4.92 Hgb 14.4 Hct 46.0 MCV 93.5 MCH 29.3 MCHC 31.3 L RDW 14.7 H Plt Count 200 MPV 11.6 H Immature Gran % (Auto) 2.1 H Neut % (Auto) 89.0 H Lymph % (Auto) 4.5 L [place] % (Auto) 3.6 Eos % (Auto) 0.1 L Baso % (Auto) 0.7 Lymph # (Auto) 0.81 L [place] # (Auto) 0.65 Eos # (Auto) 0.01 L Baso # (Auto) 0.12 H Abs Immat Gran (auto) 0.38 H Absolute Neuts (auto) 16.16 H Absolute Nucleated RBC 0.00 Nucleated RBC % 0.0 Sodium 136 Potassium 3.4 L Chloride 98 Carbon Dioxide 29 Anion Gap 9 BUN 17 Creatinine 0.78 Estim Creat Clear Calc 144 Estimated GFR > 60 Glucose 127 H Calculated Osmolality 285 Calcium 8.8 Total Bilirubin 0.5 AST 55 H ALT 45 Alkaline Phosphatase 81 Total Protein 7.0 Albumin 2.1 L Preliminary micro results at discharge 07/31/24 00:59 Blood Culture - Preliminary Blood 07/31/24 00:55 Blood Culture - Preliminary Blood Imaging Radiologist's impression: CT scan - chest: Radiologist's impression: EXAMINATION: CTA chest PE protocol DATE: 07/31/2024 01:40 INDICATION: Hemoptysis. TECHNIQUE: Computed tomography angiography (CTA) of the chest was performed with 100 mL Omnipaque-350 intravenous contrast timed to evaluate the pulmonary arteries. Coronal maximum intensity projection 3D-reconstructions were created by the technologist. Automated exposure control and iterative reconstruction technique were employed. The dose-length product was 730.31 mGy-cm. COMPARISON: Chest CT 07/28/2024 FINDINGS: There are patchy airspace opacities and nodules in all lobes, worst in left upper lobe with air bronchograms. There is a small left pleural effusion. The heart size is normal. No pericardial effusion. There is no pulmonary embolus. There is mild thoracic spondylosis. IMPRESSION: 1. Widespread bilateral pneumonia, worst in left upper lobe, worsened from 07/28/2024. 2. Small left pleural effusion. 3. No pulmonary embolism. Discharge Plan Discharge Attending physician on discharge: Brown Mercado Consulting providers: Keyana Smart Discharging Clinician: Keyana Smart Anticipated Discharge Date/Time: 08/01/24 13:48 Patient Disposition: Home, Self-Care Activity: may shower and as tolerated Diet: heart healthy Discharge Instructions: Pneumonia: * complete antibiotic therapy as prescribed Even if feeling better * I also prescribed nebulizer treatments as needed for shortness a breath and wheezing * if you experience worsening shortness a breath, fever, chills, diaphoresis or chest pain please seek medical attention * continue using incentive spirometer at home * I have also prescribed guaifenesin can also be bought OTC hypertension: * you are hypertensive during your hospitalization I have prescribed losartan daily * please monitor blood pressure at home and follow-up with primary care physician substance abuse * continue with your methadone treatment as scheduled * encourage cessation illegal substances can be reactive to methadone How can you care for yourself at home? ? Keep track of any new symptoms or changes in your symptoms. ? Rest until you feel better. ? Be safe with medicines. Take your medicines exactly as prescribed. Call your doctor if you think you are having a problem with your medicine. ? Do not drive after taking a prescription pain medicine. ? Ensure to follow-up with primary care physician as indicated and provide updated medication list provided to you at discharge. When should you call for help? Call 911 anytime you think you may need emergency care. For example, call if: ? You passed out (lost consciousness). Call your doctor now or seek immediate medical care if: ? You have new symptoms like fever, difficulty breathing, Chest pain, vomiting, or rash. ? You have new or different pain. ? You are confused and are having trouble thinking clearly. ? Your symptoms are getting worse. Watch closely for changes in your health, and be sure to contact your doctor if: ? You do not get better as expected. Patient Instructions: Antibiotic Form, Guaifenesin (By mouth), Ipratropium/Albuterol (By breathing), How to Use a Nebulizer (DC), Pneumonia (DC) Patient Language: [place] Stand Alone Forms: General Discharge Information, Work/School Release IP Follow-up/Referrals: Radha,Denisa Prieto MD [Primary Care Provider] - 2 weeks (call to make appointment within 2 weeks.) Discharge Medications: New losartan [Cozaar] 50 mg Tablet 100 mg PO DAILY Qty: 60 0RF ipratropium-albuterol 0.5 mg-3 mg(2.5 mg base)/3 mL Solution For Nebulization 3 ml inhalation Q6HRT Qty: 90 0RF trazodone 50 mg Tablet 50 mg PO HS Qty: 30 0RF azithromycin [Zithromax] 250 mg Tablet 500 mg PO DAILY Qty: 6 0RF guaifenesin [Mucus Relief ER] 600 mg Tablet Extended Release 12hr 1,200 mg PO Q12HR Qty: 20 0RF prednisone 20 mg tablet 40 mg PO DAILY Qty: 6 0RF amoxicillin-pot clavulanate 875-125 mg tablet 1 tablet PO Q12H Qty: 14 0RF Discontinued losartan-hydrochlorothiazide [Hyzaar] 50-12.5 mg tablet 1 tablet PO DAILY Qty: 30 0RF clindamycin HCl 300 mg capsule 300 mg PO TID 10 Days Qty: 30 0RF ondansetron 4 mg tablet,disintegrating 4 mg PO Q6H PRN (Reason: nausea and vomiting) Qty: 20 0RF Date of admission: 07/31/24 12:19 Primary Care Provider: BrandanDenisa Admitting Provider: Brown Mercado Attending physician on admission: Brown Mercado Condition: Stable Quality VTE Prophylaxis VTE prophylaxis: mechanical ordered and pharmacologic ordered -Patient's previous records reviewed on admission -ER notes reviewed in detail on admission -discussed all findings and current treatment plan with patient/Family/POA -Consultations reviewed for recommendations -Patient's disposition for safe discharge discussed with case management specialist Dictation performed by [facility] direct speech recognition software, therefore heavy equipment technician variants and typographical errors may occur. Hospitalist MIPS Heart Failure (Exclusion) Patient has history of Heart Transplant or Left Ventricular Assistive Device?: No IF YES, STOP HERE Heart Failure (Qualifier) Patient has current or prior documentation of LVEF less than or equal to 40%, or mod/servere depressed LVSF?: No IF NO, STOP HERE
--- NOTE | 2024-08-01 14:25 | PC.NURSE ---
Addendum entered by Snow Sauer RN 08/01/24 14:54: Patients home medication returned to patient at discharge. Original Note: Patient discharging home. IV site to left forearm removed, tip intact. Dressing applied to site. All belongings gathered together and sent home with patient. All discharge instructions and education reviewed with patient. Patient states understanding. Denies any need at this dicharge. Patient left floor ambulatory accompanied by .
--- OUTSIDE RECORDS SUMMARY | 2024-08-02 07:24 | XMS_ITS | CONTINUITY OF CARE DOCUMENT ---
Author Name daniel sanchez Address Unknown Organization [facility] Address [address] [facility] [address] [place] [address] Phone [phone] Care Team Providers Care Flake Drier Name Role Phone Gautam COYLE, Suri Unavailable [place] CORRECTIONAL GUARD-BC, Maggie Gibson Unavailable [phone] PROBLEMS Condition Status Date Provider Notes LVH--echo [...] In-person encounter Office Visit Suri Florez MD [facility] SOCIAL HISTORY Date Observation Value Provider social history reviewed E&M reviewed - no changes required Trell Painting INSURANCE PROVIDERS Payer name Policy type / Coverage type Ángel red republican ID [id number] MEDICAID (2) Medicaid [id number] TREATMENT PLAN Date Name Performer [id number],S, Trell Waller i [id number],S, Trell Waller i [id number],S, Trell Waller i [id number],S, Trell Ahmedza i [id number],S, Trell Ahmedza i [id number],S, Trell Lairdmedza i Cardiology NO SHOW Trell Ahmedzai Cardiology NO SHOW Trell Ahmedzai Cardiology NO SHOW Trell Ahmedzai Cardiology NO SHOW Trell Ahmedzai Cardiology NO SHOW Trell Ahmedzai Cardiology NO SHOW Trell Ahmedzai
--- OUTSIDE RECORDS SUMMARY | 2024-08-02 07:24 | XMS_ITS | Referral Summary ---
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
--- OUTSIDE RECORDS SUMMARY | 2024-08-02 07:24 | XMS_ITS | Clinical Summary ---
Author Organization [facility] Address [address] [place] [address] Care Team Providers Care Custom Studio Coordinator Name Role Phone Unavailable Primary Care Provider [...] Description 08/05/2024 2:00 PM CDT Office Visit [facility] Family Medicine - [place] [address] [facility] [address] [place] [address] [phone] Denisa Gipson MD [address] [place] [address] [phone] Health Maintenance Due Date Last Done Comments [...] Documents on File Type Date Recorded Patient Shake Cutter Expl anation Advance Directives and Living Will 07/21/2018 12:00 AM ADVANCED DIRECTIVES
--- OUTSIDE RECORDS SUMMARY | 2024-08-02 07:24 | XMS_ITS | Clinical Summary ---
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
--- NOTE | 2024-08-02 12:43 | PC.NURSE ---
Placed call for call back to see how his discharge was and his transition to home. Unable to leave message..
--- NOTE | 2024-08-04 13:19 | PC.NURSE ---
Spoke with Julio today, He informs discharge instructions were understood and he did not have any concerns regarding his care. Informed Julio there may be a call to complete a survey and patient said OK he would take it if he had time.
== END 2024-08-01 14:25 | disposition home or self-care (01) | DRG 193 ==
LOC: CHSED 02:44 → CHS2ND 06:56
PROVIDERS: Nurse Practitioner Family; Admitting Provider Internal Medicine; Emergency Provider Emergency Medicine; PCP Student in an Organized Health Care Education/Training Program; Visit Provider Internal Medicine
DX: J18.9 Pneumonia, unspecified organism (principal); J96.01 Acute respiratory failure with hypoxia; I10 Essential (primary) hypertension; R73.9 Hyperglycemia, unspecified; F17.210 Nicotine dependence, cigarettes, uncomplicated; F19.10 Other psychoactive substance abuse, uncomplicated; Z20.822 Contact with and (suspected) exposure to COVID-19
CPT/HCPCS: 36415; 71275; 80053; 82948; 83036; 83605; 83735; 85025; 85610; 85730; 86140; 87040; 87637; 94640; 96365; 96366; 96367; 96372; 96375; 99285; A9270; G0378; J0696; J1650; J1885; J2543; J2919; J7030; Q9967

== ENCOUNTER 2024-11-22 14:31 | Outpatient (CLI) | payer OTHER, SELFPAY ==
--- OUTSIDE RECORDS SUMMARY | 2024-11-22 14:35 | XMS_ITS | Encounter Summary ---
Author Organization [facility] Address [facility] [place] [address] Care Team Providers Care Epic Cupid Analyst Name Role Phone Denisa Gipson MD Primary Care Provider + Encounter Details Date Type Department Care Team (Late st Contact Info) Description 08/10/2024 MyChart Message Enc [facility] [address] [place] [phone] Denisa Gipson MD [address] [place] [address] Have all of my Results came back Social History Tobacco Use Types Packs/Day Years Used Date Smoking Tobacco: Every Day Cigarettes 1 23.6 Started: 2001 Passive Smoke Exposure: Current Smokeless Tobacco: Never Alcohol Use Standard Drinks/Week Comments Not Currently 0 (1 standard drink = 0.6 oz pur e alcohol) PHQ-2 Answer Date Recorded Patient Health Questionnaire-2 Score 0 08/05/2024 Sex and Gender Information Value Date Recorded Sex Assigned at Not on file Legal Sex Male 7:16 PM CDT Gender Identity Not on file Sexual Orientation Not on file documented as of this encounter Plan of Treatment Upcoming Encounters Date Type Department Care Team (Late st Contact Info) Description 08/22/2025 1:00 PM CDT Office Visit [facility] [address] [facility] [address] [place] [address] Denisa Gipson MD [address] [place] [address] documented as of this encounter Visit Diagnoses Not on filedocumented in this encounter Care Teams Epic Cupid Analyst Relationship Specialty Start Date End Date Denisa Gipson MD [address] [place] [address] PCP - General FAMILY PRACTICE 08/05/24 documented as of this encounter
--- OUTSIDE RECORDS SUMMARY | 2024-11-22 14:35 | XMS_ITS | Clinical Summary ---
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
--- OUTSIDE RECORDS SUMMARY | 2024-11-22 14:35 | XMS_ITS | Referral Summary ---
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
--- OUTSIDE RECORDS SUMMARY | 2024-11-22 14:36 | XMS_ITS | Patient Health Record ---
Author Organization [facility] Address [address] [place] [address] Care Team Providers Care Chassis Driver Name Role Phone Radharuben Lisa Primary Care Provider Reason For Referral No Information Medications Medication SIG (Take, Route, Frequency, Duration) Notes Start Date End Date Status Nabumetone 500 MG take 1 tablet (500MG ) by oral route 2 times every day Oral ([facility]) 12/03/2011 Active busPIRone HCl 10 MG take 0.5 Tablet (5MG ) by oral route 2 times every day Oral ([facility]) 02/13/2012 Active traZODone HCl 50 MG take 1 tablet (50MG) by oral route every day at bedtime Oral ([facility]) 02/13/2012 Active Problems Problem Type SNOMED Code ICD Code Onset Dates Problem Status W/U Status Risk Notes Problem Anxiety state (734671235) Anxiety state, unspecified (300.00) 2 Active confirmed ([facility]) Added By: Lisa Cerrato Problem Tobacco user (821017066) Nondependent tobacco use disorder (305.1) 2 Active confirmed ([facility]) Added By: Lisa Cerrato Problem Sprain and strain of cruciate ligament of knee (844.2) 2 Active confirmed ([facility]) Added By: Lisa Cerrato Plan Of Treatment No Information
--- OUTSIDE RECORDS SUMMARY | 2024-11-22 14:36 | XMS_ITS | Clinical Summary ---
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 10/14/2024 Active losartan (COZAAR) 100 MG tabletIndication s:Hypertension, essential Take 1 tablet (100 mg total) by mouth daily. 90 tablet 3 10/18/2024 Active Active Problems Problem Noted Date Diagnosed Date Acute hepatitis C virus infection without hepati c coma 08/11/2024 Overview (10/18/2024): He is working with GI specialist at [place]. He is currently having treatment with Epclusa. Has a FibroScan scheduled. Assessment & Plan (10/18/2024 1:10 PM CDT): Managed by GI. Currently undergoing treatment. Venous stasis dermatitis of both lower extremiti es 08/05/2024 Substance abuse 08/05/2024 Overview (08/05/2024): Methadone clinic. Clean for 3-4 months. Longest he has gone is 1 year. Has done IV, snorting. Hypertension, essential 12/18/2020 Overview (10/18/2024): Started on losartan in the hospital. Has a cuff at home but has not checked recently. Assessment & Plan (10/18/2024 1:10 PM CDT): Not controlled. Increase losartan to 100 mg daily. Request nurse visit in 2 weeks to ensure he is controlled. Left ventricular hypertrophy 12/18/2020 Tobacco dependence syndrome 12/18/2020 Overview (08/05/2024): 5 cigarettes per day now, cutting back since hospital. Was smoking 1 ppd. Encounters Date Type Department Care Team Description 10/19/[address] [address] Denisa Gipson MD Work Excuse 10/18/2024 12:40 PM CDT Office Visit [address] [address] Denisa Gipson MD Follow Up (Still losing weight. He feels hungry. He has been eating a lot recently. ) 10/18/2024 Travel 09/13/2024 Telephone [facility] [address] [phone] Saman Campuzano MD Referral 08/25/2024 Scan [facility] INFO SRVCS Scanned, [facility] from Last 3 Months Immunizations Immunization Administration Dates Next Due Dtp (Generic) 12/04/1990, 8,1986,1986,12/1986 Hepatitis B Pediatric 12/03/1996,07/09/1996,11/1996 Hib (Generic) 08/09/1988 MMR (MMRII) 12/04/1990,09/13/1987 Pneumococcal (Pneumovax 23) 05/05/2013 Pneumococcal (Prevnar 20) 08/05/2024 Polio Opv (Generic) 12/04/1990,01/17/1988,1986,1986 Td (TDVAX) 11/24/2001 Tdap (Adacel) 08/05/2024 Tdap (Generic) 08/05/2024,05/05/2013 Family History Medical History Relation Comments No Known Problems Brother 1 No Known Problems Brother 2 No Known Problems Daughter COPD Mother former smoker No Known Problems Sister 1 No Known Problems Sister 2 Relation Status Comments Brother 1 Alive Brother 2 Alive Daughter Alive Father Unknown Mother Alive Sister 1 Alive Sister 2 Alive Social History Tobacco Use Types Packs/Day Years Used Date Smoking Tobacco: Every Day Cigarettes 1 23.6 Started: 2001 Passive Smoke Exposure: Current Smokeless Tobacco: Never Tobacco Cessation:Ready to Q uit: No; Counseling Given: Yes Alcohol Use Standard Drinks/Week Comments Not Currently 0 (1 standard drink = 0.6 oz pur e alcohol) PHQ-2 Answer Date Recorded Patient Health Questionnaire-2 Score 0 08/05/2024 Sex and Gender Information Value Date Recorded Sex Assigned at Not on file Legal Sex Male 7:16 PM CDT Gender Identity Not on file Sexual Orientation Not on file Last Filed Vital Signs Vital Sign Reading Time Taken Comments Blood Pressure 150/104 10/18/2024 12:57 PM CDT Pulse 72 10/18/2024 12:49 PM CDT Temperature 36.8 C (98.2 F) 10/18/2024 12:49 PM CDT Respiratory Rate - - Oxygen Saturation 96% 10/18/2024 12:49 PM CDT Inhaled Oxygen Concentration - - Weight 101 kg (222 lb 9.6 oz) 10/18/2024 12:49 P M CDT Height 182.9 cm (6') 10/18/2024 12:49 PM CDT Body Mass Index 30.19 10/18/2024 12:49 PM CDT Plan of Treatment Upcoming Encounters Date Type Department Care Team (Late st Contact Info) Description 08/22/2025 1:00 PM CDT Office Visit [facility] - [place] [address] [place] [phone] Denisa Gipson MD [address] [place] [address] Health Maintenance Due Date Last Done Comments HPV Vaccines (1 - 3-dose SCDM series) 2013 COVID-19 Vaccine (2023- season) 2024 Annual Physical 08/05/2025 08/05/2024 DTaP, Tdap and Td Vaccines (9 - Td or Tdap) 08/05/2034 08/05/2024, 08/05/2024, 05/05/2013, Additional history exists Hepatitis B Vaccines Completed 12/03/1996, 07/09/1996, 06/11/1996 PHQ-2 (Physician [place]) Completed 08/05/2024 Pneumococcal Vaccine: Pediatrics (0 to 5 Years) and At-Risk Patients (6 to 49 Years) Completed 08/05/2024, 05/05/2013 Hepatitis C Completed 10/18/2024, 08/03, 08/11/2024, Additional history exists Meningococcal B Vaccine Aged Out No l onger eligible based on patient's age to complete this topic Meningococcal Vaccine Aged Out No ta dionte eligible based on patient's age to complete this topic RSV Immunizations Under 20 Months Aged Out No longer eligible based on patient's age to complete this topic Procedures Procedure Name Priority Date/Time Associated Diagnosis Comments HEPATITIS C ANTIBODY W/RFX TO HCV RNA Routine 08/09/2024 1:39 PM CDT Unintentional weight loss from Last 3 Months or Most Recently Relevant to Health Maintenance Results * (ABNORMAL) HEPATITIS C ANTIBODY W/RFX TO HCV RNA (08/09/2024 1:39 PM CDT) HEPATITIS C AB REACTIVE( A) NON-REACTIV E [facility] Comment: Based on this result, the sample will be tested for HCV RNA by a Nucleic Acid Amplification Test (NAAT) to determine if the patient has a current active infection. HEPATITIS C RNA PCR QNT 1,960,000 (H) NOT DETECTED IU/mL [facility] HEP C RNA PCR QNT LOG 6.29(H) NOT DETECTED Log IU/mL [facility] Comment: HCV RNA was detected. This result provides laboratory evidence of a current active HCV infection. Comment: [facility] Comment: For more information on this test, go to: http://education.[employer]/faq/TCS46a6 (This link is being provided for informational/ educational purposes only.) This assay is intended for use as an aid in the diagnosis of HCV infection and the management of HCV infected patients undergoing anti-viral therapy. 08/09/2024 1:39 PM CDT 08/09/2024 1:39 PM CDT Narrative [facility] - 08/10/2024 2:50 PM CDT FASTING:YES FASTING: YES Resulting Agency Comment Performing Organization Information: Site ID: [id number] Name: [facility] Address: [id number] [place] [address] [place] [address] Director: Papito Garcia MD us Denisa Gipson MD LABORATORY Final Re sult [facility] [id number] [place], [place] [address] from Last 3 Months or Most Recently Relevant to Health Maintenance Insurance [employer] Advance Directives Documents on File Type Date Recorded 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
[2024-11-22 15:28] LABS: Hematocrit 42.6 % (42.0-52.0); Hemoglobin 13.7 g/dL (14.0-18.0); Mean Corpuscular HGB Conc 32.2 g/dl (32-36); Mean Corpuscular Hemoglobin 29.7 pg (26-34); Mean Corpuscular Volume 92.2 fl (80-100); Platelet Count Result 156 k/mm3 (150-375); Red Blood Count 4.62 M/mm3 (4.6-6.20); White Blood Count 8.3 K/mm3 (4.5-10.0)
[2024-11-22 15:51] LABS: Alanine Aminotransferase 12 U/L (6-50); Albumin Level 4.1 g/dL (3.5-5.1); Alkaline Phosphatase 48 U/L (38-126); Anion Gap 7 mmol/L (4-12); Aspartate Amino Transferase 31 U/L (17-59); Bilirubin,Total 0.7 mg/dL (0.2-1.3); Blood Urea Nitrogen 14 mg/dL (9-20); Calcium 9.3 mg/dL (8.4-10.2); Carbon Dioxide 27 mmol/L (22-30); Chloride 104 mmol/L (98-107); Estimated Glomerular Filt Rate > 60; Glucose 86 mg/dL (65-110); Potassium 3.9 mmol/L (3.4-5.0); Sodium 138 mmol/L (137-145); Total Protein 7.8 g/dL (6.3-8.2)
[2024-11-22 15:54] LABS: INR 1.0; Prothrombin Time 13.2 Seconds (11.1-14.7)
[2024-11-25 14:08] LABS: HCV RT-PCR, Qnt (NG) YES YES
== END 2024-11-22 14:32 | disposition home or self-care (01) ==
LOC: ANHLAB 14:34
PROVIDERS: PCP Student in an Organized Health Care Education/Training Program; Visit Provider Nurse Practitioner
DX: B19.20 Unspecified viral hepatitis C without hepatic coma (principal)
CPT/HCPCS: 36415; 80053; 85027; 85610; 86803; 87522